=== PATIENT | female | born 2000 | race Caucasian/White ===

== ENCOUNTER 2024-06-27 16:30 | Inpatient (IN) | payer MEDICAID ==
[~2024-06-27] VITALS: Ht 162.6 cm; Wt 55.2 kg
[2024-06-27] MEDS ORDERED: magnesium hydroxide 30ml (MOM) UD suspension PO PRN (21:40)
[2024-06-27] MEDS ORDERED: acetaminophen 325mg tablet PO PRN (21:40)
[2024-06-28 07:30] VITALS: BP 131/87; PULSE 95; RESP 15; TEMP 97.7; O2SAT 100
[2024-06-28 07:44] LABS: CHOL/HDL RATIO 3.2 (0.00-4.99); CHOLESTEROL 167 MG/DL (0-200); HDL CHOLESTEROL 52 MG/DL (35-60); LDL CHOLESTEROL 99 MG/DL (50-100); TRIGLYCERIDES 48 MG/DL (20-135)
[2024-06-28 08:00] VITALS: RESP 15; O2SAT 100
[2024-06-28 08:19] LABS: HEMOGLOBIN A1C 5.2 % (4.5-6.2)
[2024-06-28] MEDS: hydrOXYzine 25 MG tablet PO PRN (08:59)
--- NOTE | 2024-06-28 14:47 | HISTORY AND PHYSICAL ---
History & Physical Providers to Chief complaint, I like to go home ~ History of Present Illness Reason for Admit\Complaint: As above History of Present Illness This is a 24 years old female, with a history of chronic psoriasis, not in exacerbation, according to the medical provider from mental unit, patient arrived at 2055 by with family. Pt is pleasant and cooperative. Showered and green scrubs used, has personal clothes in a suitcase. Skin is intact. Snacks given and admission completed. Low risk CSSR and has no home medications. Has poor memory about the recent change in mental status, admits being confused about recent events, lost track of time, difficulty sleeping, hyperverbal at home/ ER. States recent work stress with a new job, possibly that is what caused this. Only medical issues are history of psoriasis and dental. She was able to fall asleep after 2300. No nausea vomiting diarrhea constipation no additional complaint, or concern. Allergies: Coded Allergies: No Known Allergies (Unverified , 06/27/24) Active prescriptions Non Home Medications Non Past Medical History Past Medical History History of chronic psoriasis Past Surgical History Surgical History Comment Non Family History Family History: Family history was reviewed; no changes noted. Past Social History Social History Comment Deny illicit drug abuse tobacco alcohol use live with the family good social support Health Maintenance Health Maintenance Noncontributory ROS ROS Constitutional : no fever , no chills, or weakness. No diaphoresis. Allergic/Immunologic, no lymphadenopathy, no hives, no skin eruptions. Eyes, no recent visual changes, no eye pain, no photophobia. Ears, nose, mouth, throat, no sore throat, no nosebleed, no ear pain. Cardiovascular, no palpitations, skipped beats, chest pain, no peripheral edema, Respiratory, no dyspnea, orthopnea, cough, hemoptysis, chest wall pain. Gastrointestinal, no abdominal pain, nausea, vomiting, constipation or diarrhea. Endocrine, no polyuria, polydipsia, recent unintentional weight gain or loss. Hematologic/Lymphatic, no petechiae, no enlarged lymph nodes, no bone pain. Integumentary, no rash, no skin lesions, Musculoskeletal, no muscle aches, or pain, no muscle cramps, no recent change in gait Neurological, no dizziness, no headache, no syncope, no paresthesia. Psychiatric, no delusions, visual hallucinations, or hearing hallucinations. ROS - in rest is as in HPI. Exam Vitals: Vital Signs Date Time Temp Pulse Resp B/P (MAP) Pulse Ox O2 Delivery O2 Flow Rate FiO2 06/28/24 08:00 15 100 Room Air 06/28/24 07:30 97.7 95 131/87 (102) Vital signs, stable ,afebrile. Pulse Oximetry reflects adequate oxygenation. BMI is General: well developed, well nourished. Awake , alert, and oriented x4, resting comfortably in the bed, in no acute distress . Skin: Warm, dry, no pallor, no rash or petechiae. HEENT: Atraumatic, normocephalic, EOMI, anicteric sclera B; pink conjunctiva; PERRLA, normal oropharynx, moist oral and nasal mucosa. Tympanic membrane , nose , throat clear. Neck: Trachea midline. Supple, full range of motion, no JVD, bruit , hepatojugular reflex , lymphadenopathy or masses, or other lesions Cardiac: Regular rhythm, regular rate no murmurs, rubs, or gallops. Normal S1 and S2, no S3 noticed. PMI is normal. Respiratory: Equal breath sounds bilaterally, no tachypnea; lungs clear to auscultation bilaterally, no wheezing ,rub or rales, or crackles. Chest wall is symmetric and without deformity. No signs of trauma. Chest wall is nontender. No signs of respiratory distress. Resonance is normal upon percussion bilaterally. Gastrointestinal: Abdomen symmetric, non-distended, soft, non-tender, normal bowel sounds x4 quadrant, normoactive, no hepatosplenomegaly , no masses , no bruit, no flank pain bilaterally. No voluntary guarding, rebound, or rigidity. No tenderness to percussion. No pulsatile masses. Equal femoral pulses. No Garcia's sign or McBurney point tenderness. Back; no CVA tenderness bilaterally, no deformities. Neck and back are without deformity as well. No tenderness noted on palpation of the spinous processes. Spinous processes are midline. Cervical, thoracic, and lumbar paraspinal muscles are not tender and are without spasm. Musculoskeletal: Extremities, normal range of motion, non-tender, muscle strength 5/5 x 4. Negative Homans signs bilaterally on lower extremity. Distal pulses full symmetrical, no clubbing, cyanosis , edema. Neurological: Speech is clear, alert, and oriented x 4. No motor or sensory deficit, deep tendon reflexes normal, cerebellar intact. Cranial nerves II-XII intact. Psych: Alert and or appropriate, normal affect. Vascular: Good distal pulses, which are equal x4; capillary refill less than 2 seconds. Lymphatic, no lymphadenopathy. Advance Care Planning Advanced Care plannin - 30 Minutes Additional Plan Assessment/plan Acute psychosis Treatment per Psychiatric team. Chronic psoriasis, not in exacerbation. DVT gastropathy prophylaxis addressed Hospitalist team we will follow patient per protocol of the [facility] Sepsis Screening Reassessment Date: June 28, 2024 Date of Service: June 28, 2024 Billing Provider: NORMAN JONES MD Common Visit Codes: [id number] INP/OBS CARE (LOW) NORMAN JONES MD June 28, 2024 14:47
[2024-06-28 19:00] VITALS: RESP 17; O2SAT 100
[2024-06-28] MEDS: chlorproMAZINE 25mg tablet PO PRN (19:35)
[2024-06-28 19:53] VITALS: BP 140/91; PULSE 107; RESP 17; TEMP 97.4; O2SAT 100
[2024-06-28] MEDS: gabapentin 100mg capsule PO SCH (19:57)
[2024-06-28] MEDS: quetiapine 100mg tablet PO SCH (19:57)
--- NOTE | 2024-06-28 19:59 | HISTORY AND PHYSICAL ---
History of Present Illness History of Present Illness Patient presents as paranoid, saw staring at me, stating she does not want to be recorded or have her picture taken, answered all questions with " we shall see" per chart notes- patient arrived at 2055 by WC with family. She has poor memory about the recent change in mental status, admits being confused about recent events, lost track of time, difficulty sleeping, hyperverbal at home/ ER. States recent work stress with a new job, possibly that is what caused this. No home meds. CALLED PARENTS FOR COLLATERAL INFORMATION BUT WAS NOT ABLE TO GET IN TOUCH WITH THEM Allergies: Coded Allergies: No Known Allergies (Unverified , 06/27/24) Past Psychiatric History Psychiatric History Not able to obtain at this time Past Family History Patient History: Patient reports no known family medical history. Mental Status Exam OBSERVATION Appearnace: Neat Speech: Tangential Eye Contact: Intense Motor Activity: Slowed Affect: Flat MOOD Mood: Irritable COGNITION Orientation Impairment: Place Memory Impairment: Other Attention: Normal PERCEPTION Hallucinations: Other THOUGHTS Suicidality: None Homicidality: None Delusions: Paraniod, Other BEHAVIOR Behavior: Guarded, Paranoid INSIGHT Insight: Poor Judgment: Poor Assessment/Plan Problems/Diagnosis: (1) Psychosis Additional Plan Medication management: Seroquel 100 mg q hs abilify 10 mg daily gabapentin 100 mg tid hydroxyzine 50 mg q 6 prn anxiety Trazodone 50 mg q hs prn insomnia CODING VISIT-PSYCHIATRY Date of Service: June 28, 2024 Billing Provider: SENAIT ARDON DNP Psych Common Visit Codes: [id number] INP/OBS CARE (Mod) Problem Qualifiers (1) Psychosis: SENAIT ARDON DNP June 28, 2024 19:59
[2024-06-28 20:45] VITALS: BP_SYST 127; BP_SYST 130; BP_DIAS 84; BP_DIAS 86; PULSE 102; PULSE 84
[2024-06-28 20:46] VITALS: BP 107/64; PULSE 126
[2024-06-29 07:00] VITALS: BP 129/83; PULSE 98; RESP 16; TEMP 97.9; O2SAT 100
[2024-06-29 07:30] VITALS: RESP 16; O2SAT 100
[2024-06-29] MEDS: aripiprazole 10MG tablet PO SCH (08:14)
[2024-06-29 09:00] VITALS: BP_SYST 125; BP_SYST 126; BP_SYST 128; BP_DIAS 87; BP_DIAS 89; BP_DIAS 90; PULSE 110; PULSE 130; PULSE 141
--- NOTE | 2024-06-29 17:00 | PROGRESS NOTE ---
Progress Note Dictate Providers to CC ~ Antibiotic Ordered?: No Objective Vitals Vital Signs Date Time Temp Pulse Resp B/P (MAP) Pulse Ox O2 Delivery O2 Flow Rate FiO2 06/29/24 09:00 110 126/87 (100) 06/29/24 07:30 16 100 Room Air 06/29/24 07:00 97.9 Problem\\Assessment\\Plan Problems/Diagnosis: (1) Psychosis Psychiatrist's Progress Note Date of Service: June 29, 2024 Notes History of Present Illness Patient presents as paranoid, saw staring at me, stating she does not want to be recorded or have her picture taken, answered all questions with " we shall see" per chart notes- patient arrived at 2055 by WC with family. She has poor memory about the recent change in mental status, admits being confused about recent events, lost track of time, difficulty sleeping, hyperverbal at home/ ER. States recent work stress with a new job, possibly that is what caused this. No home meds. Assessment. Pt evaluated in the conference room, presented more clear, stated she slept well, feels her a weight have shifted. patient is showing some progr ess, will continue with same tx regimen. Will continue to monitor symptoms and titrate medication as needed, premature discharge will most likely cause decompensation Collateral: Per pt father, patient had no prior psych hx, there is also no family psych hx. 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, just broke up with boyfriend which might have been too much for the patient MSE Appearance: stated age Speech: Normal rate/tone Eye Contact: good Motor: congruent Mood: "better" Orientation Impairment: Person, place and situation Memory Impairment: none Attention: Normal Hallucinations: Other Suicidality: None Homicidality: None Insight: fair Judgment: fair Medication management: Seroquel 100 mg q hs abilify 10 mg daily gabapentin 100 mg tid hydroxyzine 50 mg q 6 prn anxiety Trazodone 50 mg q hs prn insomnia CODING VISIT-PSYCHIATRY Date of Service: June 29, 2024 Billing Provider: SENAIT ARDON DNP Psych Common Visit Codes: [id number] INP/OBS CARE(Mod) Problem Qualifiers (1) Psychosis: SENAIT ARDON DNP June 29, 2024 17:00
[2024-06-29 19:00] VITALS: RESP 16
[2024-06-29 20:00] VITALS: BP 144/89; PULSE 117; RESP 16; TEMP 98.1; O2SAT 99
[2024-06-30 07:00] VITALS: RESP 16; O2SAT 99
[2024-06-30 08:00] VITALS: BP 112/70; PULSE 122; RESP 16; TEMP 98.5; O2SAT 99
--- NOTE | 2024-06-30 11:16 | PROGRESS NOTE ---
Daily Progress Note Providers to CC No new complaint today, resting comfortably in the bed ~ Central Line/PICC still needed: No Gee-Non Protocol Gee Indications Met/Not Met: F/C Indications Not Met Antibiotic Timeout Antibiotic Ordered?: No MRSA Education MRSA Education Provided to pt: No Subjective As above Objective Vital Signs Date Time Temp Pulse Resp B/P (MAP) Pulse Ox O2 Delivery O2 Flow Rate FiO2 06/30/24 08:00 98.5 122 16 112/70 (84) 99 Room Air Vital signs, stable ,afebrile. Pulse Oximetry reflects adequate oxygenation. General: well developed, well nourished. Awake , alert, and oriented x4, resting comfortably in the bed, in no acute distress . Skin: Warm, dry, no pallor, no rash or petechiae. HEENT: Atraumatic, normocephalic, EOMI, anicteric sclera B; pink conjunctiva; PERRLA, normal oropharynx, moist oral and nasal mucosa. Tympanic membrane , nose , throat clear. Neck: Trachea midline. Supple, full range of motion, no JVD, bruit , hepatojugular reflex , lymphadenopathy or masses, or other lesions Cardiac: Regular rhythm, regular rate no murmurs, rubs, or gallops. Normal S1 and S2, no S3 noticed. PMI is normal. Respiratory: Equal breath sounds bilaterally, no tachypnea; lungs clear to auscultation bilaterally, no wheezing ,rub or rales, or crackles. Chest wall is symmetric and without deformity. No signs of trauma. Chest wall is nontender. No signs of respiratory distress. Resonance is normal upon percussion bilaterally. Gastrointestinal: Abdomen symmetric, non-distended, soft, non-tender, normal bowel sounds x4 quadrant, normoactive, no hepatosplenomegaly , no masses , no bruit, no flank pain bilaterally. No voluntary guarding, rebound, or rigidity. No tenderness to percussion. No pulsatile masses. Equal femoral pulses. No Garcia's sign or McBurney point tenderness. Back; no CVA tenderness bilaterally, no deformities. Neck and back are without deformity as well. No tenderness noted on palpation of the spinous processes. Spinous processes are midline. Cervical, thoracic, and lumbar paraspinal muscles are not tender and are without spasm. : normal external genitalia, without lesions, swelling, masses or tenderness. Musculoskeletal: Extremities, normal range of motion, non-tender, muscle strength 5/5 x 4. Negative Homans signs bilaterally on lower extremity. Distal pulses full symmetrical, no clubbing, cyanosis , edema. Neurological: Speech is clear, alert, and oriented x 4. No motor or sensory deficit, deep tendon reflexes normal, cerebellar intact. Cranial nerves II-XII intact. Psych: Alert and or appropriate, normal affect. Vascular: Good distal pulses, which are equal x4; capillary refill less than 2 seconds. Lymphatic, no lymphadenopathy. Problem\Assessment\Plan Assessment/plan Acute psychosis Treatment per Psychiatric team. Chronic psoriasis, not in exacerbation. Dehydration, IV fluids on board DVT gastropathy prophylaxis addressed Hospitalist team we will follow patient per protocol of the hospital Sepsis Screening Reassessment Date: June 30, 2024 Date of Service: June 30, 2024 Billing Provider: NORMAN JONES MD Common Visit Codes: [id number] INP/OBS CARE(LOW) NORMAN JONES MD June 30, 2024 11:16
--- NOTE | 2024-06-30 18:36 | RADIOLOGY REPORT ---
Clinical History tachyarrytmia Comparison None Technique: single view chest Without Contrast JULIET HERRING, [id number] FINDINGS: Trachea is midline, heart size normal, cardiomediastinal silhouette unremarkable. There is no pneumonia or pulmonary vascular congestion, no pneumothorax, no evidence of pleural or pe ricardial effusion. Osseous structures are unremarkable on this single image. IMPRESSION: 1. No evidence of acute cardiopulmonary disease. This report was electronically signed by Terrell Barksdale MD on 06/30/2024 6:32:36 PM.
[2024-06-30 19:00] VITALS: RESP 18; O2SAT 98
[2024-06-30 19:37] LABS: D-DIMER 0.98 MG/L FEU (0-0.50)
[2024-06-30 19:38] LABS: BASOPHILS # (AUTO) 0.1 X10'3 (0-0.2); BASOPHILS % (AUTO) 1.1 % (0-1); EOSINOPHILS # (AUTO) 0.1 X10'3 (0-0.9); EOSINOPHILS % (AUTO) 1.7 % (0-6); HEMATOCRIT 38.1 % (35.0-45.0); HEMOGLOBIN 12.7 g/dl (12.0-16.0); LYMPHOCYTES # (AUTO) 1.9 X10'3 (1.1-4.8); LYMPHOCYTES % (AUTO) 25.4 % (21-51); MEAN CORPUSCULAR HEMOGLOBIN 24.5 PG (27.0-31.0); MEAN CORPUSCULAR HGB CONC 33.3 g/dL (33.0-36.5); MEAN CORPUSCULAR VOLUME 73.5 FL (78-98); MONOCYTES # (AUTO) 0.6 X10'3 (0-0.9); MONOCYTES % (AUTO) 7.8 % (2-12); NEUTROPHILS # (AUTO) 4.8 X10'3 (1.8-7.7); PLATELET COUNT 540 X10'3 (140-440); RED BLOOD COUNT 5.18 X10'6 (4.20-5.60); RED CELL DISTRIBUTION WIDTH 19.2 % (11.5-14.5); WHITE BLOOD COUNT 7.5 X10'3 (4.5-11.0)
[2024-06-30 19:41] LABS: ALANINE AMINOTRANSFERASE 25 U/L (12-78); ALBUMIN 4.3 G/DL (3.4-5.0); ALKALINE PHOSPHATASE 105 IU/L (46-116); ANION GAP 12 (8-16); ASPARTATE AMINO TRANSFERASE 17 U/L (10-37); BILIRUBIN,TOTAL 0.2 MG/DL (0.1-1.0); BLOOD UREA NITROGEN 14 MG/DL (7-18); BUN/CREATININE RATIO 17.1 (10.0-20.0); CALCIUM 9.4 MG/DL (8.5-10.1); CHLORIDE 100 MMOL/L (99-107); CREATINE KINASE 132 U/L (26-192); CREATININE 0.82 MG/DL (0.40-0.90); GLUCOSE 88 MG/DL (70-104); MAGNESIUM 2.1 MG/DL (1.5-2.4); POTASSIUM 4.3 MMOL/L (3.5-5.1); SODIUM 138 MMOL/L (135-145); TOTAL PROTEIN 8.5 G/DL (6.4-8.2); eCRCL 90 ML/MIN; eGFR 84 ML/MIN
[2024-06-30 20:00] VITALS: BP 109/77; PULSE 96; RESP 18; TEMP 98.4; O2SAT 98
[2024-06-30 20:03] LABS: ANISOCYTOSIS 2+; MICROCYTOSIS 1+
[2024-06-30 20:04] LABS: PLATELET ESTIMATE INCREASED
[2024-06-30 20:20] LABS: BILIRUBIN,URINE NEGATIVE (Neg); CLARITY,URINE SLIGHTLY CLOUDY (Clear); COLOR,URINE YELLOW (Yellow); GLUCOSE, URINE NEGATIVE (Neg); KETONES,URINE NEGATIVE (Neg); LEUKOCYTE ESTERASE ,URINE SMALL (Neg); NITRITES, URINE POSITIVE (Neg); OCCULT BLOOD,URINE LARGE (Neg); PH,URINE 5.5 (4.8-8.0); PROTEIN,URINE NEGATIVE (Neg); UROBILINOGEN,URINE 0.2 E.U/dL (0.2-1.0)
[2024-06-30 20:24] LABS: UA COLLECTION TYPE NON-SPECIFIED
[2024-06-30 20:28] LABS: BACTERIA,URINE 3+ /HPF (Neg); RBC,URINE TNTC /HPF (0-2); SQUAMOUS EPITHELIAL CELL,UR FEW /LPF (FEW)
[2024-06-30 20:40] LABS: URINE AMPHETAMINE SCREEN NEGATIVE (Neg); URINE BARBITUATE SCREEN NEGATIVE (Neg); URINE BENZODIAZEPINES SCREEN NEGATIVE (Neg); URINE CANNABINOID SCREEN NEGATIVE (Neg); URINE COCAINE SCREEN NEGATIVE (Neg); URINE METHADONE SCREEN NEGATIVE (Neg); URINE OPIATE SCREEN NEGATIVE (Neg); URINE PHENCYCLIDINE SCREEN NEGATIVE (Neg)
--- NOTE | 2024-06-30 20:46 | PROGRESS NOTE ---
Progress Note Dictate Providers to CC ~ Antibiotic Ordered?: No Objective Vitals Vital Signs Date Time Temp Pulse Resp B/P (MAP) Pulse Ox O2 Delivery O2 Flow Rate FiO2 06/30/24 08:00 98.5 122 16 112/70 (84) 99 Room Air Lab Results: 06/30/24 1848 06/30/24 1848 Coagulation Studies Laboratory Tests Test 06/30/24 18:48 D-Dimer 0.98 MG/L FEU (0-0.50) H D-Dimer Comment Problem\\Assessment\\Plan Problems/Diagnosis: (1) Psychosis Psychiatrist's Progress Note Date of Service: June 30, 2024 Notes HPI Patient presents as paranoid, saw staring at me, stating she does not want to be recorded or have her picture taken, answered all questions with " we shall see" per chart notes- patient arrived at 2055 by WC with family. She has poor memory about the recent change in mental status, admits being confused about recent events, lost track of time, difficulty sleeping, hyper verbal at home/ ER. States recent work stress with a new job, possibly that is what caused this. No home meds. Assessment Patient assessed in the conference room, report good efficacy with treatment, sleep is good, mood have improved, she denies SI/HI/AVH, states she feels bored because there is really nothing to do in the hospital but understands that it is better for her. No behavioral or safety concerns reported by staff, Will continue to monitor symptoms and titrate meds as needed with plans to discharge patient in a few days if she continuos to show good progress, MSE Speech: Normal rate/tone Eye Contact: good Motor: congruent Mood: "ok" Orientation Impairment: Person, place and situation Memory Impairment: none Attention: Normal Hallucinations: Other Suicidality: None Homicidality: None Insight: good Judgment: good Medication management: Seroquel 100 mg q hs abilify 10 mg daily gabapentin 100 mg tid hydroxyzine 50 mg q 6 prn anxiety Trazodone 50 mg q hs prn insomnia CODING VISIT-PSYCHIATRY Date of Service: June 30, 2024 Billing Provider: SENAIT ARDON DNP Psych Common Visit Codes: [id number] INP/OBS CARE(Mod) Problem Qualifiers (1) Psychosis: SENAIT ARDON DNP June 30, 2024 20:46
[2024-07-01] MEDS: ringers solution, lacted 1,000 ML IV ONE (00:48)
[2024-07-01 07:00] VITALS: RESP 12; O2SAT 92
[2024-07-01 08:00] VITALS: BP 108/71; PULSE 75; RESP 16; TEMP 97; O2SAT 97
[2024-07-01] MEDS: levoFLOXACIN 750MG TABLET PO SCH (11:50)
--- NOTE | 2024-07-01 13:25 | PROGRESS NOTE ---
Progress Note Dictate Providers to CC ~ Central Line/PICC still needed: N\A Antibiotic Ordered?: Yes If Yes, Indications: UTI If Yes, Anticipated Duration: 10d Objective Vitals Vital Signs Date Time Temp Pulse Resp B/P (MAP) Pulse Ox O2 Delivery O2 Flow Rate FiO2 06/30/24 20:00 98.4 96 18 109/77 (88) 98 Room Air Lab Results: 06/30/24 1848 06/30/24 1848 Coagulation Studies Laboratory Tests Test 06/30/24 18:48 D-Dimer 0.98 MG/L FEU (0-0.50) H D-Dimer Comment Problem\Assessment\Plan Problems/Diagnosis: (1) Psychosis Psychiatrist's Progress Note Date of Service: July 01, 2024 Notes Johnna Dinh is an female with no known mental health history who presented to [facility] ED with complaints of anxiety and unusual behaviors. She was recently evaluated by a hospital in [place] last week. They did lab work. She talked with a psychiatrist and was d/c with Atarax. She has not seen improvement from medication. Family states she had a bad break up 2 months ago. Sister states that the patient is not making sense and is often talking to herself. CHART REVIEW: Calvin, her father was present at that interview with [facility]. He reports she is not alert and oriented. Johnna herself is a poor historian and often unable to provide any coherent information. Dad states they recently moved from [facility] due to persecution and were seeking asylum. Dad, Step Mom, and sister moved to [place]. Last April she seemed like herself when she visited her father. 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 She recently got a license and stressed about driving in [place]. At that point father stated he talked to over the phone. She was very talkative and was not sleeping. She had been talking with her boyfriend who then contacted her family as he was concerned about her behavior. She hadn't been sleeping, the hotel room was a mess, and she was screaming. She was taken to the ER. Stayed there 2d and given atarax, diagnosed with anxiety. Johnna and Johnna's sister flew to [place] to be with their father so he could help. She started to not sleep again. Working on [employer] content. She was talking more about congregational. The family are Baptism but not overly so. Her behavior became erratic where she was standing on the balcony disrobed, was very entergetic and mumbled to herself. She was also becoming paranoid and thinking the neighbors were just standing in front of the door. She was not eating much and not sleeping. Patient was placed on a 5150 for GD. Patient is an female with long black nappy hair pulled up into a hair tie. She is wearing street clothes. Struggling today a little bit. 'it's been a long day.' Been hiding the corners. 'hard to digest how much of an impact the world has on you.' 'I'm not judging anyone.' Skittish. Guarded. 'There should be white noise up in here, we can all just have a nap or a sip of water.' Had to do deep breathing. Asking questions but not able to answer correctly, Disoriented, 'Yes' Anxious. 'genuinely just the two of us here,' On an antibiotic 'also complicated.' Looking around the room. 'we are the world it's a song, I think,' Sleep last night and tried to nap and then hard time thinking. Took a nap. 'woke up pretty violently.' Distracted by things in the room. Says 'it's night and day.' Mental Status Patient's appearance is appropriate. Behavior is described as bizarre and paranoid Psychomotor behaviors are slowed Speech is slow to respond. Often not responding appropriately Patient's affect : Blunted Mood : 'It's been a long day.' Sensorium- clouded and confused, disorented consciousness. Patient's intellect is average. Attitude is cooperative. Attention is quite distracted Reasoning is poor Impulse control is poor Judgment is poor Insight is Poor Thought processes are circumstantial, tangential, Paranoid with quaker delusions Thought content : Internal preoccupation, Denies auditory visual or tactile hallucinations, but heard and seen responding to internal stimuli. Having paranoid ideations The patient does not express suicidal ideation. The patient does not express homicidal ideation. Results Of any Diagn. Testing On Admission Labs CBC- WNL CMP- WNL TSH- 1.45 UTOX- NEG URINE-- small leuks no nitrites. No C&S indicated HCG- NEG Treatment Patient is definitely having a break from reality. Unsure if this is a first psychotic break or other. She is responding to the abilify very minimally. Will try to increase and see if she will clear up more. Sounds like she could be bipolar with psychotic symptoms or schizophrenia with mood changes. Gave patient a one time dose of Zyprexa and Ativan which were very effective. Seroquel 100 mg q hs Abilify 15 mg daily Gabapentin 100 mg tid Hydroxyzine 50 mg q 6 prn anxiety Trazodone 50 mg q hs prn insomnia Monitoring by Staff, Milieu, Group, and Individual counseling as needed -- According to the [place] Suicide Assessment the above named patient is on Q 15 MINUTE CHECKS. DTS-- The patient does not have a good safety plan for discharge at this time. We are still titrating medications to an effective dose while maintaining a therapeutic environment to prevent decompensation and readmission. GD-- The patient is unable to formulate a viable plan for food, clothing and half-way. We are still titrating medications to an effective dose while maintaining a therapeutic environment to prevent decompensation and readmission. REVIEW OF Clinical notes [X ] RN notes [X] PCT documentation [X] SW notes [X] Labs [ X] Medications [X] Care trends/care activity [X] Vitals [X] DISCUSSION WITH night monitor [X] DISCHARGE UNSURE AT THIS TIME. DISCHARGE HOME ONCE STABLE. CODING VISIT-PSYCHIATRY Date of Service: July 01, 2024 Billing Provider: SOHAN CLAUDIO Psych Common Visit Codes: [id number] INP/OBS CARE(High) Problem Qualifiers (1) Psychosis: SOHAN CLAUDIO July 01, 2024 13:25
[2024-07-01] MEDS: LORazepam 1 MG tablet PO ONE (17:13)
[2024-07-01] MEDS: OLANZapine 5mg rapidly disint. tablet PO ONE (17:13)
[2024-07-01 19:00] VITALS: RESP 20; O2SAT 100
[2024-07-01 20:00] VITALS: BP 92/60; PULSE 80; RESP 20; TEMP 97.9; O2SAT 100
[2024-07-02 07:00] VITALS: RESP 16; O2SAT 100
[2024-07-02 08:00] VITALS: BP 124/85; PULSE 85; RESP 16; TEMP 97.7; O2SAT 100
--- NOTE | 2024-07-02 10:42 | PROGRESS NOTE ---
Progress Note Dictate Providers to CC ~ Central Line/PICC still needed: N\A Antibiotic Ordered?: No Objective Vitals Vital Signs Date Time Temp Pulse Resp B/P (MAP) Pulse Ox O2 Delivery O2 Flow Rate FiO2 07/02/24 08:00 97.7 85 16 124/85 (98) 100 Room Air Lab Results: 06/30/24 1848 06/30/24 1848 Coagulation Studies Laboratory Tests Test 06/30/24 18:48 D-Dimer 0.98 MG/L FEU (0-0.50) H D-Dimer Comment Problem\Assessment\Plan Problems/Diagnosis: (1) Psychosis Psychiatrist's Progress Note Date of Service: July 02, 2024 Notes Woke up early and usually go to buddhism with family. Sometimes just watch at home. Feels like confusion based off multiple choices. 'feeling good'. Someone watching her from outside the door. Remembered where she was. In a hospital. For treatment for something. Depression comes and goes like seasons. Talking a little bit tangentially. Realized a lot of things that the world is a globe and doesn't roll on the ground. Things that were made known in terms of contracts and treaties. Not sure at this point what she has signed. 'consent is an important in this universe.' Talks a little bizarre. Feels she was given consent for meds. More trusting than she was when she first came here. Anxiety comes.. thinking of future. 'Maybe I was studied, I don't know who did.' Hear people talking outside but I'm in here with you so it doesn't bother me.' Slept last night. Feeling less scared. She picks up the Bible... because of this. She still is wandering a bit. Still looking a little lost. Still responding to Internal Stimuli but seems far less. She does admit to some VH at times. Johnna Dinh is an female with no known mental health history who presented to [facility] ED with complaints of anxiety and unusual behaviors. She was recently evaluated by a hospital in [place] last week. They did lab work. She talked with a psychiatrist and was d/c with Atarax. She has not seen improvement from medication. Family states she had a bad break up 2 months ago. Sister states that the patient is not making sense and is often talking to herself. CHART REVIEW: Calvin, her father was present at that interview with [facility]. He reports she is not alert and oriented. Johnna herself is a poor historian and often unable to provide any coherent information. Dad states they recently moved from [facility] due to persecution and were seeking asylum. Dad, Step Mom, and sister moved to [place]. Last April she seemed like herself when she visited her father. 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 She recently got a license and stressed about driving in [place]. At that point father stated he talked to over the phone. She was very talkative and was not sleeping. She had been talking with her boyfriend who then contacted her family as he was concerned about her behavior. She hadn't been sleeping, the hotel room was a mess, and she was screaming. She was taken to the ER. Stayed there 2d and given atarax, diagnosed with anxiety. Johnna and Johnna's sister flew to [place] to be with their father so he could help. She started to not sleep again. Working on [employer] content. She was talking more about mandaen. The family are Mosque but not overly so. Her behavior became erratic where she was standing on the balcony disrobed, was very entergetic and mumbled to herself. She was also becoming paranoid and thinking the neighbors were just standing in front of the door. She was not eating much and not sleeping. Patient was placed on a 5150 for GD. Patient is an female with long black nappy hair pulled up into a hair tie. She is wearing street clothes. Struggling today a little bit. 'it's been a long day.' Been hiding the corners. 'hard to digest how much of an impact the world has on you.' 'I'm not judging anyone.' Skittish. Guarded. 'There should be white noise up in here, we can all just have a nap or a sip of water.' Had to do deep breathing. Asking questions but not able to answer correctly, Disoriented, 'Yes' Anxious. 'genuinely just the two of us here,' On an antibiotic 'also complicated.' Looking around the room. 'we are the world it's a song, I think,' Sleep last night and tried to nap and then hard time thinking. Took a nap. 'woke up pretty violently.' Distracted by things in the room. Says 'it's night and day.' Mental Status Mental Status Patient's appearance is appropriate. Behavior is described as bizarre and paranoid Psychomotor behaviors are slowed Speech is slow to respond. Often not responding appropriately Patient's affect : Blunted Mood : 'It's been a long day.' Sensorium- clouded and confused, a little less disorented consciousness. Patient's intellect is average. Attitude is cooperative. Attention is quite distracted Reasoning is poor Impulse control is poor Judgment is poor Insight is Poor Thought processes are circumstantial, tangential, Paranoid with jehovah's witness delusions Thought content : Internal preoccupation, Denies auditory visual or tactile hallucinations, but heard and seen responding to internal stimuli. Having paranoid ideations The patient does not express suicidal ideation. The patient does not express homicidal ideation. Results Of any Diagn. Testing On Admission Labs CBC- WNL CMP- WNL TSH- 1.45 UTOX- NEG URINE-- small leuks no nitrites. No C&S indicated HCG- NEG Treatment Patient's abilify was just increased. She was also given a one time dose of zyprexa and ativan which she feels helped her.... She is showing some improvement... We could increase Abilify again, perhaps, but If not helpful in completely clearing patient should think about switching to something else. Like Zyprexa or Risperdal. Hopefully we could get her to agree to an FISCHER prior to discharge. Seroquel 100 mg q hs Abilify 15mg daily Gabapentin 100 mg tid Hydroxyzine 50 mg q 6 prn anxiety Trazodone 50 mg q hs prn insomnia Monitoring by Staff, Milieu, Group, and Individual counseling as needed -- According to the [place] Suicide Assessment the above named patient is on Q 15 MINUTE CHECKS. DTS/GD--VOL-- The patient does not have a good safety plan for discharge at this time. We are still titrating medications to an effective dose while maintaining a therapeutic environment to prevent decompensation and readmission. The patient is unable to formulate a viable plan for food, clothing and mcc. We are still titrating medications to an effective dose while maintaining a therapeutic environment to prevent decompensation and readmission. REVIEW OF Clinical notes [X ] RN notes [X] PCT documentation [X] SW notes [X] Labs [ X] Medications [X] Care trends/care activity [X] Vitals [X] DISCUSSION WITH plant nursery worker [X] DISCHARGE UNSURE AT THIS TIME. DISCHARGE HOME ONCE STABLE. CODING VISIT-PSYCHIATRY Date of Service: July 02, 2024 Billing Provider: SOHAN CLAUDIO Psych Common Visit Codes: [id number] INP/OBS CARE(Mod) Problem Qualifiers (1) Psychosis: SOHAN CLAUDIO July 02, 2024 10:42
[2024-07-02] MEDS: lactose-reduced food (Ensure Enlive) - 237ml bottle PO SCH (13:26)
[2024-07-02] MEDS: mag hydrox/Alum hydrox/simeth 30ml oral suspension PO PRN (14:33)
--- NOTE | 2024-07-02 16:19 | PROGRESS NOTE- Residence ---
Progress Note - Resident Providers to CC Resident Creating Document: GABRIEL ARNETT CC: TERI CARABALLO MD ~ Antibiotic Timeout Antibiotic Ordered?: No Subjective Patient was seen in [facility] unit today. Patient is calm and cooperative but but her speech lacks coherence and she is unable to provide straight answers. When asked if she has any medical complaints she responded "I have two scars on my hand". Objective Vital Signs Date Time Temp Pulse Resp B/P (MAP) Pulse Ox O2 Delivery O2 Flow Rate FiO2 07/02/24 08:00 97.7 85 16 124/85 (98) 100 Room Air Result Diagram: 06/30/248 06/30/241847 General:Cooperative but incoherent speech HEENT: No pallor present, no icterus, moist mucous membranes Neck: No masses and tenderness Resp: Unlabored. Lungs clear to auscultation bilaterally. Heart: Regular Rate and rhythm, normal S1 and S2 without murmur, rub or gallop Abdomen: Soft and non tender no organomegaly, no guarding and rigidity, bowel sounds present Neuro: No weakness in the upper and lower limb muscles, power of the muscles 5/5 bilateral upper and lower muscles, knee reflex present bilaterally. Cranial nerves intact Extremities: No cyanosis,clubbing or edema Skin: Warm and Dry. No lesions Coagulation Studies Laboratory Tests Test 06/30/24 18:48 D-Dimer 0.98 MG/L FEU (0-0.50) H D-Dimer Comment Plan Plan Psychosis Management per psychiatry UTI On Levofloxacin, day 3/5 No medical complaints at this time. Recent labs reviewed. Hospitalist team will continue to follow the patient Gabriel Gonzalez MD Internal Medicine Resident PGY-1 Date of Service: July 02, 2024 Billing Provider: TERI CARABALLO MD, LEONARDO LUIS July 02, 2024 16:19
[2024-07-02 19:00] VITALS: RESP 18; O2SAT 99
[2024-07-02 20:00] VITALS: BP 134/95; PULSE 65; RESP 18; TEMP 98.3; O2SAT 99
[2024-07-02] MEDS: LORazepam 1 MG tablet PO ONE (22:20)
[2024-07-02] MEDS: OLANZapine 2.5MG tablet PO ONE (22:20)
[2024-07-03 07:00] VITALS: RESP 18; O2SAT 100
[2024-07-03 08:00] VITALS: BP 129/74; PULSE 76; RESP 18; TEMP 98.3; O2SAT 100
--- NOTE | 2024-07-03 10:51 | PROGRESS NOTE ---
Progress Note Dictate Providers to CC ~ Antibiotic Ordered?: No Objective Vitals Vital Signs Date Time Temp Pulse Resp B/P (MAP) Pulse Ox O2 Delivery O2 Flow Rate FiO2 07/03/24 08:00 98.3 76 18 129/74 (92) 100 Room Air Lab Results: 06/30/24 1848 06/30/24 1848 Coagulation Studies Laboratory Tests Test 06/30/24 18:48 D-Dimer 0.98 MG/L FEU (0-0.50) H D-Dimer Comment Problem\\Assessment\\Plan Problems/Diagnosis: (1) Psychosis Psychiatrist's Progress Note Date of Service: July 03, 2024 Notes Johnna Dinh is an female with no known mental health history who presented to [facility] ED with complaints of anxiety and unusual behaviors. She was recently evaluated by a hospital in [place] last week. They did lab work. She talked with a psychiatrist and was d/c with Atarax. She has not seen improvement from medication. Family states she had a bad break up 2 months ago. Sister states that the patient is not making sense and is often talking to herself. CHART REVIEW: Calvin, her father was present at that interview with [facility]. He reports she is not alert and oriented. Johnna herself is a poor historian and often unable to provide any coherent information. Dad states they recently moved from [facility] due to persecution and were seeking asylum. Dad, Step Mom, and sister moved to [place]. Last April she seemed like herself when she visited her father. 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 She recently got a license and stressed about driving in [place]. At that point father stated he talked to over the phone. She was very talkative and was not sleeping. She had been talking with her boyfriend who then contacted her family as he was concerned about her behavior. She hadn't been sleeping, the hotel room was a mess, and she was screaming. She was taken to the ER. Stayed there 2d and given atarax, diagnosed with anxiety. Johnna and Johnna's sister flew to [place] to be with their father so he could help. She started to not sleep again. Working on [email or web address] content. She was talking more about christian. The family are Mosque but not overly so. Her behavior became erratic where she was standing on the balcony disrobed, was very entergetic and mumbled to herself. She was also becoming paranoid and thinking the neighbors were just standing in front of the door. She was not eating much and not sleeping. Patient was placed on a 5150 for GD. Assessment: Patient evaluated in the conference room, acting bizzare,paranoid, responding to internal stimuli, looking under the table, talking to self, speech is nonsensical, doing deep breathing during the assessment. not answering questions correctly" It's complicated" Patient seemed to have regressed, still adjusting medications, will continue inpatient admission. Mental Status Mental Status Patient's appearance is appropriate. Behavior is described as bizarre and paranoid Psychomotor behaviors are slowed Speech is slow to respond. Often not responding appropriately Patient's affect : Blunted Mood : 'It's been a long day.' Sensorium- clouded and confused, a little less disorented consciousness. Patient's intellect is average. Attitude is cooperative. Attention is quite distracted Reasoning is poor Impulse control is poor Judgment is poor Insight is Poor Thought processes are circumstantial, tangential, Paranoid with presybeterian delusions Thought content : Internal preoccupation, Denies auditory visual or tactile hallucinations, but heard and seen responding to internal stimuli. Having paranoid ideations The patient does not express suicidal ideation. The patient does not express homicidal ideation. Results Of any Diagn. Testing On Admission Labs CBC- WNL CMP- WNL TSH- 1.45 UTOX- NEG URINE-- small leuks no nitrites. No C&S indicated HCG- NEG Treatment Seroquel 100 mg q hs Suspend Abilify 15mg daily D/c Gabapentin 100 mg tid Hydroxyzine 50 mg q 6 prn anxiety Trazodone 50 mg q hs prn insomnia Monitoring by Staff, Milieu, Group, and Individual counseling as needed -- According to the [place] Suicide Assessment the above named patient is on Q 15 MINUTE CHECKS. DTS/GD--VOL-- The patient does not have a good safety plan for discharge at this time. We are still titrating medications to an effective dose while maintaining a therapeutic environment to prevent decompensation and readmission. The patient is unable to formulate a viable plan for food, clothing and longterm. We are still titrating medications to an effective dose while maintaining a therapeutic environment to prevent decompensation and readmission. CODING VISIT-PSYCHIATRY Date of Service: July 03, 2024 Billing Provider: SENAIT ARDON DNP Psych Common Visit Codes: [id number] INP/OBS CARE(Mod) Problem Qualifiers (1) Psychosis: SENAIT ARDON DNP July 03, 2024 10:51
[2024-07-03] MEDS: acetaminophen 325mg tablet PO PRN (17:21)
[2024-07-03 19:00] VITALS: RESP 18; O2SAT 99
[2024-07-03 20:00] VITALS: BP 127/86; PULSE 89; RESP 18; TEMP 98.2; O2SAT 99
[2024-07-04 07:30] VITALS: BP 149/84; PULSE 82; RESP 16; TEMP 97.4; O2SAT 99
[2024-07-04 08:00] VITALS: RESP 16; O2SAT 99
[2024-07-04 18:39] VITALS: RESP 18; O2SAT 99
--- NOTE | 2024-07-04 18:54 | PROGRESS NOTE ---
Progress Note Dictate Providers to CC ~ Antibiotic Ordered?: No Objective Vitals Vital Signs Date Time Temp Pulse Resp B/P (MAP) Pulse Ox O2 Delivery O2 Flow Rate FiO2 07/04/24 18:39 18 99 Room Air 07/04/24 07:30 97.4 82 149/84 (105) Lab Results: 06/30/24 1848 06/30/24 1848 Coagulation Studies Laboratory Tests Test 06/30/24 18:48 D-Dimer 0.98 MG/L FEU (0-0.50) H D-Dimer Comment Problem\\Assessment\\Plan Problems/Diagnosis: (1) Psychosis Psychiatrist's Progress Note Date of Service: July 04, 2024 Notes Johnna Dinh is an female with no known mental health history who presented to [facility] ED with complaints of anxiety and unusual behaviors. She was recently evaluated by a hospital in [place] last week. They did lab work. She talked with a psychiatrist and was d/c with Atarax. She has not seen improvement from medication. Family states she had a bad break up 2 months ago. Sister states that the patient is not making sense and is often talking to herself. CHART REVIEW: Calvin, her father was present at that interview with [facility]. He reports she is not alert and oriented. Johnna herself is a poor historian and often unable to provide any coherent information. Dad states they recently moved from [facility] due to persecution and were seeking asylum. Dad, Step Mom, and sister moved to [place]. Last April she seemed like herself when she visited her father. 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 She recently got a license and stressed about driving in [place]. At that point father stated he talked to over the phone. She was very talkative and was not sleeping. She had been talking with her boyfriend who then contacted her family as he was concerned about her behavior. She hadn't been sleeping, the hotel room was a mess, and she was screaming. She was taken to the ER. Stayed there 2d and given atarax, diagnosed with anxiety. Johnna and Johnna's sister flew to [place] to be with their father so he could help. She started to not sleep again. 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 She was talking more about yazidism. The family are Religion but not overly so. Her behavior became erratic where she was standing on the balcony disrobed, was very entergetic and mumbled to herself. She was also becoming paranoid and thinking the neighbors were just standing in front of the door. She was not eating much and not sleeping. Patient was placed on a 5150 for GD. Assessment: Patient evaluated in the conference room, appears confused, answers all questions with " it is complicated", pt still exhibits acute psychiatric symptoms, adjusting tx, initiating zyprexa 5 mg with slow taper up. No safety concerns reported by staff. Mental Status Mental Status Patient's appearance is appropriate. Behavior is described as bizarre and paranoid Psychomotor behaviors are slowed Speech is slow to respond. Often not responding appropriately Patient's affect : Blunted Mood : 'It's been a long day.' Sensorium- clouded and confused, a little less disorented consciousness. Patient's intellect is average. Attitude is cooperative. Attention is quite distracted Reasoning is poor Impulse control is poor Judgment is poor Insight is Poor Thought processes are circumstantial, tangential, Paranoid with orthodoxy delusions Thought content : Internal preoccupation, Denies auditory visual or tactile hallucinations, but heard and seen responding to internal stimuli. Having paranoid ideations The patient does not express suicidal ideation. The patient does not express homicidal ideation. Results Of any Diagn. Testing On Admission Labs CBC- WNL CMP- WNL TSH- 1.45 UTOX- NEG URINE-- small leuks no nitrites. No C&S indicated HCG- NEG Treatment Seroquel 100 mg q hs Suspend Abilify 15mg daily D/c Gabapentin 100 mg tid Hydroxyzine 50 mg q 6 prn anxiety Trazodone 50 mg q hs prn insomnia Monitoring by Staff, Milieu, Group, and Individual counseling as needed -- According to the [place] Suicide Assessment the above named patient is on Q 15 MINUTE CHECKS. DTS/GD--VOL-- The patient does not have a good safety plan for discharge at this time. We are still titrating medications to an effective dose while maintaining a therapeutic environment to prevent decompensation and readmission. The patient is unable to formulate a viable plan for food, clothing and residential. We are still titrating medications to an effective dose while maintaining a therapeutic environment to prevent decompensation and readmission. CODING VISIT-PSYCHIATRY Date of Service: July 04, 2024 Billing Provider: SENAIT ARDON DNP Psych Common Visit Codes: [id number] INP/OBS CARE(Mod) Problem Qualifiers (1) Psychosis: SENAIT ARDON DNP July 04, 2024 18:54
[2024-07-04 20:01] VITALS: BP 123/88; PULSE 102; RESP 18; TEMP 98.5; O2SAT 100
--- NOTE | 2024-07-04 20:24 | PROGRESS NOTE ---
Daily Progress Note Providers to CC ~ Antibiotic Timeout Antibiotic Ordered?: No Subjective This is the hospitalist progress note on patients hospitalized at [facility]. The patient informs me that she had fallen laterally due to dizziness and has left hip and knee pain. And on exam the patient has a clicking sensation with extension and flexion of her left knee however the left hip exam was unremarkable- the patient's roommate endorses the patient's account of being dizzy and falling. Objective Vital Signs Date Time Temp Pulse Resp B/P (MAP) Pulse Ox O2 Delivery O2 Flow Rate FiO2 07/04/24 20:01 98.5 102 18 123/88 (100) 100 Room Air Result Diagram: 06/30/248 06/30/241847 Gen. No acute distress alert and oriented Lungs clear to ascultation bilaterally, no wheezes rales or rhonchi appreciated Heart normal sinus rhythm no murmurs rubs or clicks noted Abdomen soft nontender bowel sounds are normoactive Lower extremities no clubbing cyanosis, nor edema appreciated bilaterally Muscle skeletal- right knee unremarkable, left hip full range of motion with a negative MARA test, left knee noticeable popping and clicking with flexion extension Coagulation Studies Laboratory Tests Test 06/30/24 18:48 D-Dimer 0.98 MG/L FEU (0-0.50) H D-Dimer Comment Problem\Assessment\Plan #Acute psychosis Treatment per Psychiatric team. #Chronic psoriasis, not in exacerbation. #Left knee and hip strain Physical therapy Hospitalist team will continue to follow the patient while hospitalized at [facility] Date of Service: July 04, 2024 Billing Provider: LUANNE DUNHAM DO Common Visit Codes: [id number] INP/OBS CARE(MOD) LUANNE DUNHAM DO July 04, 2024 20:24
[2024-07-04] MEDS: OLANZAPINE 5 MG TABLET PO SCH (21:17)
[2024-07-05 07:00] VITALS: BP 124/76; PULSE 101; RESP 18; TEMP 98; O2SAT 100
[2024-07-05 07:50] VITALS: RESP 18; O2SAT 100
[2024-07-05] MEDS: hydrOXYzine 25 MG tablet PO ONE (14:06)
[2024-07-05] MEDS: LORazepam 0.5 MG tablet PO PRN (14:34)
[2024-07-05 18:44] VITALS: RESP 18; O2SAT 98
[2024-07-05 19:13] VITALS: BP 135/84; PULSE 105; RESP 16; TEMP 98.9; O2SAT 98
--- NOTE | 2024-07-05 19:21 | PROGRESS NOTE ---
Progress Note Dictate Providers to CC ~ Antibiotic Ordered?: No Objective Vitals Vital Signs Date Time Temp Pulse Resp B/P (MAP) Pulse Ox O2 Delivery O2 Flow Rate FiO2 07/05/24 18:44 18 98 Room Air 07/05/24 07:00 98.0 101 124/76 (92) Coagulation Studies Laboratory Tests Test 06/30/24 18:48 D-Dimer 0.98 MG/L FEU (0-0.50) H D-Dimer Comment Problem\Assessment\Plan Problems/Diagnosis: (1) Psychosis Psychiatrist's Progress Note Date of Service: July 05, 2024 Notes Johnna Dinh is an female with no known mental health history who presented to [facility] ED with complaints of anxiety and unusual behaviors. She was recently evaluated by a hospital in [place] last week. They did lab work. She talked with a psychiatrist and was d/c with Atarax. She has not seen improvement from medication. Family states she had a bad break up 2 months ago. Sister states that the patient is not making sense and is often talking to herself. CHART REVIEW: Calvin, her father was present at that interview with [facility]. He reports she is not alert and oriented. Johnna herself is a poor historian and often unable to provide any coherent information. Dad states they recently moved from [facility] due to persecution and were seeking asylum. Dad, Step Mom, and sister moved to [place]. Last April she seemed like herself when she visited her father. 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 She recently got a license and stressed about driving in [place]. At that point father stated he talked to over the phone. She was very talkative and was not sleeping. She had been talking with her boyfriend who then contacted her family as he was concerned about her behavior. She hadn't been sleeping, the hotel room was a mess, and she was screaming. She was taken to the ER. Stayed there 2d and given atarax, diagnosed with anxiety. Johnna and Johnna's sister flew to [place] to be with their father so he could help. She started to not sleep again. 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 She was talking more about anglican. The family are Advent but not overly so. Her behavior became erratic where she was standing on the balcony disrobed, was very entergetic and mumbled to herself. She was also becoming paranoid and thinking the neighbors were just standing in front of the door. She was not eating much and not sleeping. Patient was placed on a 5150 for GD. Assessment: Patient evaluated in the conference room, alert but exhibited disorganized thought process, symptoms seemed to worsen in the afternoon, per pt nurse, pt disrobed, speech was nonsensical, medication administered but had no affect. patient placed on life of sight. Will suspend Zyprexa and ability for now, Give awash out period before initiating medication again. Mental Status Mental Status Patient's appearance is appropriate. Behavior is described as bizarre and paranoid Psychomotor behaviors are slowed Speech is slow to respond. Often not responding appropriately Patient's affect : Blunted Mood : 'It's been a long day.' Sensorium- clouded and confused, a little less disorented consciousness. Patient's intellect is average. Attitude is cooperative. Attention is quite distracted Reasoning is poor Impulse control is poor Judgment is poor Insight is Poor Thought processes are circumstantial, tangential, Paranoid with buddhist delusions Thought content : Internal preoccupation, Denies auditory visual or tactile hallucinations, but heard and seen responding to internal stimuli. Having par anoid ideations The patient does not express suicidal ideation. The patient does not express homicidal ideation. Results Of any Diagn. Testing On Admission Labs CBC- WNL CMP- WNL TSH- 1.45 UTOX- NEG URINE-- small leuks no nitrites. No C&S indicated HCG- NEG Treatment D/c Seroquel 100 mg q hs D/c Suspend Abilify 15mg daily D/c Gabapentin 100 mg tid Hydroxyzine 50 mg q 6 prn anxiety Trazodone 50 mg q hs prn insomnia Monitoring by Staff, Milieu, Group, and Individual counseling as needed -- According to the [facility] Suicide Assessment the above named patient is on Q 15 MINUTE CHECKS. DTS/GD--VOL-- The patient does not have a good safety plan for discharge at this time. We are still titrating medications to an effective dose while maintaining a therapeutic environment to prevent decompensation and readmission. The patient is unable to formulate a viable plan for food, clothing and senior living. We are still titrating medications to an effective dose while maintaining a th erapeutic environment to prevent decompensation and readmission. CODING VISIT-PSYCHIATRY Date of Service: July 05, 2024 Billing Provider: SENAIT ARDON DNP Psych Common Visit Codes: [id number] INP/OBS CARE(Mod) Problem Qualifiers (1) Psychosis: SENAIT ARDON DNP July 05, 2024 19:21
[2024-07-06 07:45] VITALS: RESP 16; O2SAT 99
[2024-07-06 08:00] VITALS: BP 119/71; PULSE 106; RESP 16; TEMP 97.8; O2SAT 99
--- NOTE | 2024-07-06 15:34 | PROGRESS NOTE ---
Progress Note Dictate Providers to CC ~ Antibiotic Ordered?: No Objective Vitals Vital Signs Date Time Temp Pulse Resp B/P (MAP) Pulse Ox O2 Delivery O2 Flow Rate FiO2 07/06/24 08:00 97.8 106 16 119/71 (87) 99 Room Air Coagulation Studies Laboratory Tests Test 06/30/24 18:48 D-Dimer 0.98 MG/L FEU (0-0.50) H D-Dimer Comment Problem\Assessment\Plan Problems/Diagnosis: (1) Psychosis Psychiatrist's Progress Note Date of Service: July 06, 2024 Notes Johnna Dinh is an female with no known mental health history who presented to [facility] ED with complaints of anxiety and unusual behaviors. She was recently evaluated by a hospital in [place] last week. They did lab work. She talked with a psychiatrist and was d/c with Atarax. She has not seen improvement from medication. Family states she had a bad break up 2 months ago. Sister states that the patient is not making sense and is often talking to herself. CHART REVIEW: Calvin, her father was present at that interview with [facility]. He reports she is not alert and oriented. Johnna herself is a poor historian and often unable to provide any coherent information. Dad states they recently moved from [facility] due to persecution and were seeking asylum. Dad, Step Mom, and sister moved to [place]. Last April she seemed like herself when she visited her father. 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 She recently got a license and stressed about driving in [place]. At that point father stated he talked to over the phone. She was very talkative and was not sleeping. She had been talking with her boyfriend who then contacted her family as he was concerned about her behavior. She hadn't been sleeping, the hotel room was a mess, and she was screaming. She was taken to the ER. Stayed there 2d and given atarax, diagnosed with anxiety. Johnna and Johnna's sister flew to [place] to be with their father so he could help. She started to not sleep again. Working on [employer] content. She was talking more about sikh. The family are Alevism but not overly so. Her behavior became erratic where she was standing on the balcony disrobed, was very entergetic and mumbled to herself. She was also becoming paranoid and thinking the neighbors we re just standing in front of the door. She was not eating much and not sleeping. Patient was placed on a 5150 for GD. Assessment: Patient evaluated in the conference room, alert, pleasantly confused, does not know why she is in the hospital, seems overwhelmed, constantlly breathin in [place]. for the most part would just stare and smile at the provider. Per report, responded well to risperidone administered in the ER, will restart it again , will continue daily assessment and medication adjustments as needed to stabilize pt Mental Status Mental Status Patient's appearance is appropriate. Behavior is described as bizarre and paranoid Psychomotor behaviors are slowed Speech is slow to respond. Often not responding appropriately Patient's affect : Blunted Mood : 'It's been a long day.' Sensorium- clouded and confused, a little less disorented consciousness. Patient's intellect is average. Attitude is cooperative. Attention is quite distracted Reasoning is poor Impulse control is poor Judgment is poor Insight is Poor Thought processes are circumstantial, tangential, Paranoid with voodoo delusions Thought content : Internal preoccupation, Denies auditory visual or tactile hallucinations, but heard and seen responding to internal stimuli. Having paranoid ideations The patient does not express suicidal ideation. The patient does not express homicidal ideation. Results Of any Diagn. Testing On Admission Labs CBC- WNL CMP- WNL TSH- 1.45 UTOX- NEG URINE-- small leuks no nitrites. No C&S indicated HCG- NEG Treatment Start Risperidone 0.5 mg bid Hydroxyzine 50 mg q 6 prn anxiety Trazodone 50 mg q hs prn insomnia Monitoring by Staff, Milieu, Group, and Individual counseling as needed -- According to the [place] Suicide Assessment the above named patient is on Q 15 MINUTE CHECKS. DTS/GD--VOL-- The patient does not have a good safety plan for discharge at this time. We are still titrating medications to an effective dose while maintaining a therapeutic environment to prevent decompensation and readmission. The patient is unable to formulate a viable plan for food, clothing and senior care. We are still titrating medications to an effective dose while maintaining a therapeutic environment to prevent decompensation and readmission. CODING VISIT-PSYCHIATRY Date of Service: July 06, 2024 Billing Provider: SENAIT ARDON DNP Psych Common Visit Codes: [id number] INP/OBS CARE(Mod) Problem Qualifiers (1) Psychosis: SENAIT ARDON DNP July 06, 2024 15:34
--- NOTE | 2024-07-06 16:18 | PROGRESS NOTE- Residence ---
Progress Note - Resident Providers to CC Resident Creating Document: GABRIEL ARNETT CC: TERI CARABALLO MD ~ Antibiotic Timeout Antibiotic Ordered?: No Subjective Patient was seen in [facility] unit today. Reports mild headaches occasionally. Otherwise denies any medical complaints at this time Objective Vital Signs Date Time Temp Pulse Resp B/P (MAP) Pulse Ox O2 Delivery O2 Flow Rate FiO2 07/06/24 08:00 97.8 106 16 119/71 (87) 99 Room Air General: Alert and awake HEENT: No pallor present, no icterus, moist mucous membranes Neck: No masses and tenderness Resp: Unlabored. Lungs clear to auscultation bilaterally. Heart: Regular Rate and rhythm, normal S1 and S2 without murmur, rub or gallop Abdomen: Soft and non tender no organomegaly, no guarding and rigidity, bowel sounds present Neuro: No weakness in the upper and lower limb muscles, power of the muscles 5/5 bilateral upper and lower muscles, knee reflex present bilaterally. Cranial nerves intact Extremities: No cyanosis,clubbing or edema Skin: Warm and Dry. No lesions Coagulation Studies Laboratory Tests Test 06/30/24 18:48 D-Dimer 0.98 MG/L FEU (0-0.50) H D-Dimer Comment Plan Plan Psychosis Management per psychiatry No medical complaints at this time Most recent labs reviewed Gabriel Gonzalez MD Internal Medicine Resident PGY-1 Date of Service: July 06, 2024 Billing Provider: TEIR CARABALLO MD, LEONARDO LUIS July 06, 2024 16:18
[2024-07-06 18:46] VITALS: RESP 18; O2SAT 99
[2024-07-06 20:02] VITALS: BP 131/88; PULSE 114; RESP 16; TEMP 97.8; O2SAT 99
[2024-07-06] MEDS: risperiDONE 0.25mg tablet PO SCH (21:10)
[2024-07-07 07:35] VITALS: BP 115/81; PULSE 89; RESP 16; TEMP 97.6; O2SAT 99
[2024-07-07 08:17] VITALS: RESP 16; O2SAT 99
[2024-07-07] MEDS: haloperidol lactate 5mg/ml inj IM ONE (09:48)
[2024-07-07] MEDS: diphenhydrAMINE 50 mg/ml inj IM ONE (09:48)
[2024-07-07] MEDS: LORazepam 2 mg/ml vial IM STA (09:48)
--- NOTE | 2024-07-07 15:06 | PROGRESS NOTE ---
Progress Note Dictate Providers to CC ~ Antibiotic Ordered?: No Objective Vitals Vital Signs Date Time Temp Pulse Resp B/P (MAP) Pulse Ox O2 Delivery O2 Flow Rate FiO2 07/07/24 08:17 16 99 Room Air 07/07/24 07:35 97.6 89 115/81 (92) Coagulation Studies Laboratory Tests Test 06/30/24 18:48 D-Dimer 0.98 MG/L FEU (0-0.50) H D-Dimer Comment Problem\Assessment\Plan Problems/Diagnosis: (1) Psychosis Psychiatrist's Progress Note Date of Service: July 07, 2024 Notes Johnna Dinh is an female with no known mental health history who presented to [facility] ED with complaints of anxiety and unusual behaviors. She was recently evaluated by a hospital in [place] last week. They did lab work. She talked with a psychiatrist and was d/c with Atarax. She has not seen improvement from medication. Family states she had a bad break up 2 months ago. Sister states that the patient is not making sense and is often talking to herself. CHART REVIEW: Calvin, her father was present at that interview with [facility]. He reports she is not alert and oriented. Johnna herself is a poor historian and often unable to provide any coherent information. Dad states they recently moved from [facility] due to persecution and were seeking asylum. Dad, Step Mom, and sister moved to [place]. Last April she seemed like herself when she visited her father. 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. 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 She recently got a license and stressed about driving in [place]. At that point father stated he talked to over the phone. She was very talkative and was not sleeping. She had been talking with her boyfriend who then contacted her family as he was concerned about her behavior. She hadn't been sleeping, the hotel room was a mess, and she was screaming. She was taken to the ER. Stayed there 2d and given atarax, diagnosed with anxiety. Johnna and Johnna's sister flew to [place] to be with their father so he could help. She started to not sleep again. 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 She was talking more about sikh. The family are Denominational but not overly so. Her behavior became erratic where she was standing on the balcony disrobed, was very entergetic and mumbled to herself. She was also becoming paranoid and thinking the neighbors were just standing in front of the door. She was not eating much and not sleeping. Patient was placed on a 5150 for GD. Assessment: Patient evaluated in the conference room,Patient continous to exhibit acute psychiatric symptoms, presents asconfused, speech is nonsensical, poor insight and judgment exhibiting inappropriate behavior and lack of awareness of her environment, twice now has disrobed in-front of others patients. Liane needs constant supervision due to ongoing psychiatric symptoms, will continue daily assessment and medication adjustments as needed to stabilize pt Mental Status Mental Status Patient's appearance is appropriate. Behavior is described as bizarre and paranoid Psychomotor behaviors are slowed Speech is slow to respond. Often not responding appropriately Patient's affect : Blunted Mood : 'It's been a long day.' Sensorium- clouded and confused, a little less disorented consciousness. Patient's intellect is average. Attitude is cooperative. Attention is quite distracted Reasoning is poor Impulse control is poor Judgment is poor Insight is Poor Thought processes are circumstantial, tangential, Paranoid with pentecostal delusions Thought content : Internal preoccupation, Denies auditory visual or tactile hallucinations, but heard and seen responding to internal stimuli. Having paranoid ideations The patient does not express suicidal ideation. The patient does not express homicidal ideation. Results Of any Diagn. Testing On Admission Labs CBC- WNL CMP- WNL TSH- 1.45 UTOX- NEG URINE-- small leuks no nitrites. No C&S indicated HCG- NEG Treatment Increase Risperidone dose to 1 mg bid Hydroxyzine 50 mg q 6 prn anxiety Trazodone 50 mg q hs prn insomnia Monitoring by Staff, Milieu, Group, and Individual counseling as needed -- According to the [place] Suicide Assessment the above named patient is on Q 15 MINUTE CHECKS. DTS/GD--VOL-- The patient does not have a good safety plan for discharge at this time. We are still titrating medications to an effective dose while maintaining a therapeutic environment to prevent decompensation and readmission. The patient is unable to formulate a viable plan for food, clothing and halfway. We are still titrating medications to an effective dose while maintaining a therapeutic environment to prevent decompensation and readmission. CODING VISIT-PSYCHIATRY Date of Service: July 07, 2024 Billing Provider: SENAIT ARDON DNP Psych Common Visit Codes: [id number] INP/OBS CARE(Mod) Problem Qualifiers (1) Psychosis: SENAIT ARDON DNP July 07, 2024 15:06
[2024-07-07 19:00] VITALS: RESP 18
[2024-07-07 20:00] VITALS: RESP 18
[2024-07-07] MEDS: traZODone 50mg tablet PO PRN (20:53)
[2024-07-08] MEDS: diphenhydrAMINE 25mg capsule PO PRN (06:58)
[2024-07-08 07:07] VITALS: RESP 16
[2024-07-08 07:50] VITALS: BP 124/82; PULSE 104; RESP 12; TEMP 97.8; O2SAT 98
[2024-07-08] MEDS: risperiDONE 0.25mg tablet PO ONE (11:28)
--- NOTE | 2024-07-08 13:38 | PROGRESS NOTE ---
Progress Note Dictate Providers to CC ~ Central Line/PICC still needed: N\A Antibiotic Ordered?: No MRSA Education MRSA Education Provided to pt: No Objective Vitals Vital Signs Date Time Temp Pulse Resp B/P (MAP) Pulse Ox O2 Delivery O2 Flow Rate FiO2 07/08/24 07:50 97.8 104 12 124/82 (96) 98 Room Air Coagulation Studies Laboratory Tests Test 06/30/24 18:48 D-Dimer 0.98 MG/L FEU (0-0.50) H D-Dimer Comment Psychiatrist's Progress Note Date of Service: July 08, 2024 Notes Johnna Dinh is an female with no known mental health history who presented to [facility] ED with complaints of anxiety and unusual behaviors. She was recently evaluated by a hospital in [place] last week. They did lab work. She talked with a psychiatrist and was d/c with Atarax. She has not seen improvement from medication. Family states she had a bad break up 2 months ago. Sister states that the patient is not making sense and is often talking to herself. CHART REVIEW: Calvin, her father was present at that interview with [facility]. He reports she is not alert and oriented. Johnna herself is a poor historian and often unable to provide any coherent information. Dad states they recently moved from [facility] due to persecution and were seeking asylum. Dad, Step Mom, and sister moved to [place]. Last April she seemed like herself when she visited her father. 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 She recently got a license and stressed about driving in [place]. At that point father stated he talked to over the phone. She was very talkative and was not sleeping. She had been talking with her boyfriend who then contacted her family as he was concerned about her behavior. She hadn't been sleeping, the hotel room was a mess, and she was screaming. She was taken to the ER. Stayed there 2d and given atarax, diagnosed with anxiety. Johnna and Johnna's sister flew to [place] to be with their father so he could help. She started to not sleep again. 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 She was talking more about religious. The family are Adventism but not overly so. Her behavior became erratic where she was standing on the balcony disrobed, was very entergetic and mumbled to herself. She was also becoming paranoid and thinking the neighbors were just standing in front of the door. She was not eating much and not sleeping. Patient was placed on a 5150 for GD. Assessment: Patient evaluated in the observation room. Patient presents as , confused, distracted, uncooperative and making nonsensical statements while laughing and staring at this engineering technical writer. Liane needs constant supervision due to ongoing psychiatric symptoms, will continue daily assessment and medication adjustments as needed to stabilize pt Mental Status Mental Status Patient's appearance is appropriate. Behavior is described as bizarre and paranoid Attitude uncooperative. Attention is quite distracted Judgment is poor Insight is Poor Results Of any Diagn. Testing On Admission Labs CBC- WNL CMP- WNL TSH- 1.45 UTOX- NEG URINE-- small leuks no nitrites. No C&S indicated HCG- NEG Treatment Risperidone dose to 1 mg bid Hydroxyzine 50 mg q 6 prn anxiety Trazodone 50 mg q hs prn insomnia Monitoring by Staff, Milieu, Group, and Individual counseling as needed -- According to the [place] Suicide Assessment the above named patient is on Q 15 MINUTE CHECKS. 5250-DTS/GD--VOL-- The patient does not have a good safety plan for discharge at this time. We are still titrating medications to an effective dose while maintaining a therapeutic environment to prevent decompensation and readmission. The patient is unable to formulate a viable plan for food, clothing and [facility]. We are still titrating medications to an effective dose while maintaining a therapeutic environment to prevent decompensation and readmission. CODING VISIT-PSYCHIATRY Date of Service: July 08, 2024 Billing Provider: URIEL SELBY APRN Psych Common Visit Codes: [id number] INP/OBS CARE(Mod) URIEL SELBY APRN July 08, 2024 13:38
--- NOTE | 2024-07-08 14:22 | PROGRESS NOTE- Residence ---
Progress Note - Resident Providers to CC Resident Creating Document: GABRIEL ARNETT CC: TERI CARABALLO MD ~ Antibiotic Timeout Antibiotic Ordered?: No Subjective Patient was seen in [facility] unit today. She seemed to be having a bout of psychosis and only said the words "soccer" and "tennis". Had a bowel movement today per nurse Objective Vital Signs Date Time Temp Pulse Resp B/P (MAP) Pulse Ox O2 Delivery O2 Flow Rate FiO2 07/08/24 07:50 97.8 104 12 124/82 (96) 98 Room Air General: Alert and awake, slightly agitated, mouthing random words Rest of exam deferred Coagulation Studies Laboratory Tests Test 06/30/24 18:48 D-Dimer 0.98 MG/L FEU (0-0.50) H D-Dimer Comment Plan Plan Psychosis Management per psychiatry Most recent labs reviewed Hospitalist team will continue to follow patient Gabriel Gonzalez MD Internal Medicine Resident PGY-1 Date of Service: July 08, 2024 Billing Provider: TERI CARABALLO MD, LEONARDO LUIS July 08, 2024 14:22
[2024-07-08] MEDS: risperiDONE 0.5mg tablet PO SCH (19:00)
[2024-07-08 19:20] VITALS: RESP 18; O2SAT 99
[2024-07-08 19:51] VITALS: BP 114/68; PULSE 106; RESP 18; TEMP 98.1; O2SAT 96
[2024-07-09 07:00] VITALS: RESP 15
[2024-07-09 08:00] VITALS: RESP 15
--- NOTE | 2024-07-09 11:46 | PROGRESS NOTE ---
Progress Note Dictate Providers to CC ~ Central Line/PICC still needed: N\A Antibiotic Ordered?: No MRSA Education MRSA Education Provided to pt: No Objective Vitals Vital Signs Date Time Temp Pulse Resp B/P (MAP) Pulse Ox O2 Delivery O2 Flow Rate FiO2 07/09/24 08:00 15 07/08/24 19:51 98.1 106 114/68 (83) 96 Room Air Coagulation Studies Laboratory Tests Test 06/30/24 18:48 D-Dimer 0.98 MG/L FEU (0-0.50) H D-Dimer Comment Psychiatrist's Progress Note Date of Service: July 09, 2024 Notes Johnna Dinh is an female with no known mental health history who presented to [facility] ED with complaints of anxiety and unusual behaviors. She was recently evaluated by a hospital in [place] last week. They did lab work. She talked with a psychiatrist and was d/c with Atarax. She has not seen improvement from medication. Family states she had a bad break up 2 months ago. Sister states that the patient is not making sense and is often talking to herself. CHART REVIEW: Calvin, her father was present at that interview with [facility]. He reports she is not alert and oriented. Johnna herself is a poor historian and often unable to provide any coherent information. Dad states they recently moved from [facility] due to persecution and were seeking asylum. Dad, Step Mom, and sister moved to [place]. Last April she seemed like herself when she visited her father. 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 She recently got a license and stressed about driving in [place]. At that point father stated he talked to over the phone. She was very talkative and was not sleeping. She had been talking with her boyfriend who then contacted her family as he was concerned about her behavior. She hadn't been sleeping, the hotel room was a mess, and she was screaming. She was taken to the ER. Stayed there 2d and given atarax, diagnosed with anxiety. Johnna and Johnna's sister flew to [place] to be with their father so he could help. She s tarted to not sleep again. Working on [email or web address] content. She was talking more about yarsanism. The family are Muslim but not overly so. Her behavior became erratic where she was standing on the balcony disrobed, was very entergetic and mumbled to herself. She was also becoming paranoid and thinking the neighbors were just standing in front of the door. She was not eating much and not sleeping. Patient was placed on a 5150 for GD. Assessment: Patient evaluated in the observation room. The patietn was actively walking in the hallway with 1:1 caregiver. Patient presents as confused, distracted, uncooperative and impoverished speech. The patietn sat in the chair and starred at the floor. Liane needs constant supervision due to ongoing psychiatric symptoms, will continue daily assessment and medication adjustments as needed to stabilize pt Mental Status Patient's appearance is appropriate. Behavior is described as bizarre and paranoid Attitude uncooperative. Attention is quite distracted Judgment is poor Insight is Poor Results Of any Diagn. Testing On Admission Labs CBC- WNL CMP- WNL TSH- 1.45 UTOX- NEG URINE-- small leuks no nitrites. No C&S indicated HCG- NEG Treatment Risperidone dose to 1 mg bid Hydroxyzine 50 mg q 6 prn anxiety Trazodone 50 mg q hs prn insomnia Monitoring by Staff, Milieu, Group, and Individual counseling as needed -- According to the [place] Suicide Assessment the above named patient is on Q 15 MINUTE CHECKS. 5250-DTS/GD--VOL-- The patient does not have a good safety plan for discharge at this time. We are still titrating medications to an effective dose while maintaining a therapeutic environment to prevent decompensation and readmission. The patient is unable to formulate a viable plan for food, clothing and fci. We are still titrating medications to an effective dose while maintaining a therapeutic environment to prevent decompensation and readmission. CODING VISIT-PSYCHIATRY Date of Service: July 09, 2024 Billing Provider: URIEL SELBY APRN Psych Common Visit Codes: [id number] INP/OBS CARE(Mod) URIEL SELBY APRN July 09, 2024 11:46
[2024-07-09 19:00] VITALS: RESP 18; O2SAT 100
[2024-07-09 20:00] VITALS: BP 124/89; PULSE 87; RESP 16; TEMP 97.1; O2SAT 100
[2024-07-10 07:00] VITALS: RESP 16; O2SAT 97
[2024-07-10 08:00] VITALS: BP 122/86; PULSE 112; RESP 16; TEMP 97.5; O2SAT 97
--- NOTE | 2024-07-10 10:06 | PROGRESS NOTE ---
Progress Note Dictate Providers to CC ~ Antibiotic Ordered?: No Objective Vitals Vital Signs Date Time Temp Pulse Resp B/P (MAP) Pulse Ox O2 Delivery O2 Flow Rate FiO2 07/10/24 08:00 97.5 112 16 122/86 (98) 97 Room Air Coagulation Studies Laboratory Tests Test 06/30/24 18:48 D-Dimer 0.98 MG/L FEU (0-0.50) H D-Dimer Comment Problem\\Assessment\\Plan Problems/Diagnosis: (1) Psychosis Psychiatrist's Progress Note Date of Service: July 10, 2024 Notes Johnna Dinh is an female with no known mental health history who presented to [facility] ED with complaints of anxiety and unusual behaviors. She was recently evaluated by a hospital in [place] last week. They did lab work. She talked with a psychiatrist and was d/c with Atarax. She has not seen improvement from medication. Family states she had a bad break up 2 months ago. Sister states that the patient is not making sense and is often talking to herself. CHART REVIEW: Calvin, her father was present at that interview with [facility]. He reports she is not alert and oriented. Johnna herself is a poor historian and often unable to provide any coherent information. Dad states they recently moved from [facility] due to persecution and were seeking asylum. Dad, Step Mom, and sister moved to [place]. Last April she seemed like herself when she visited her father. 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 She recently got a license and stressed about driving in [place]. At that point father stated he talked to over the phone. She was very talkative and was not sleeping. She had been talking with her boyfriend who then contacted her family as he was concerned about her behavior. She hadn't been sleeping, the hotel room was a mess, and she was screaming. She was taken to the ER. Stayed there 2d and given atarax, diagnosed with anxiety. Johnna and Johnna's sister flew to [place] to be with their father so he could help. She started to not sleep again. Working on [employer] content. She was talking more about samaritan. The family are Mu-Ism but not overly so. Her behavior became erratic where she was standing on the balcony disrobed, was very entergetic and mumbled to herself. She was also becoming paranoid and thinking the neighbors we re just standing in front of the door. She was not eating much and not sleeping. Patient was placed on a 5150 for GD. Assessment: Patient evaluated in the conference room, she affect was flat, presented with nonsensical and disorganized speech repeatedly stating " you kow why I am here". Her behavior was erratic, appeared disoriented,she was observed pacing around the room, frequently looking under the table, and approaching the window repeatedly. Throughout the evaluation, she required constant redirection. It is not advisable to discharge this patient at this time due to high risk of safety concerns Mental Status Patient's appearance is appropriate. Behavior is bizarre Psychomotor behaviors are slowed Speech is nonsensical Patient's affect : flat Sensorium- clouded and confused,. Attitude is cooperative. Attention is quite distracted Reasoning is poor Impulse control is poor Judgment is poor Insight is Poor Results Of any Diagn. Testing On Admission Labs CBC- WNL CMP- WNL TSH- 1.45 UTOX- NEG URINE-- small leuks no nitrites. No C&S indicated HCG- NEG Treatment Weekly CBC Start Clozaril 25 mg titrating up daily to therapeutic dose Reduce Risperidone dose to 0.25 mg bid Hydroxyzine 50 mg q 6 prn anxiety Trazodone 50 mg q hs prn insomnia Monitoring by Staff, Milieu, Group, and Individual counseling as needed -- Acco rding to the [place] Suicide Assessment the above named patient is on Q 15 MINUTE CHECKS. Total Time Spent: 45 minutes, including but not limited to assessment of the patient, review of chart and EMR, discussion and consulting with social work, staff, and the assigned nurse, review of medications, and prescribing medications and charting. DTS/GD--5250-- The patient does not have a good safety plan for discharge at this time. We are still titrating medications to an effective dose while maintaining a therapeutic environment to prevent decompensation and readmission. CODING VISIT-PSYCHIATRY Date of Service: July 10, 2024 Billing Provider: SENAIT ARDON DNP Psych Common Visit Codes: [id number] INP/OBS CARE(Mod) Problem Qualifiers (1) Psychosis: SENAIT ARDON DNP July 10, 2024 10:05
[2024-07-10] MEDS: clozapine 25mg tablet PO ONE (11:21)
--- NOTE | 2024-07-10 19:18 | PROGRESS NOTE- Residence ---
Progress Note - Resident Providers to CC Resident Creating Document: GABRIEL ARNETT CC: TERI CARABALLO MD ~ Antibiotic Timeout Antibiotic Ordered?: No Subjective Patient was seen in [facility] unit today. Patient was walking in circles and making random comments. She did mention not having any medical complaints Objective Vital Signs Date Time Temp Pulse Resp B/P (MAP) Pulse Ox O2 Delivery O2 Flow Rate FiO2 07/10/24 08:00 97.5 112 16 122/86 (98) 97 Room Air General: Alert and awake, mouthing random words HEENT: No pallor present, no icterus, moist mucous membranes Neck: No masses and tenderness Resp: Unlabored. Lungs clear to auscultation bilaterally. Heart: Regular Rate and rhythm, normal S1 and S2 without murmur, rub or gallop Abdomen: Soft and non tender no organomegaly, no guarding and rigidity, bowel sounds present Neuro: No weakness in the upper and lower limb muscles, power of the muscles 5/5 bilateral upper and lower muscles, knee reflex present bilaterally. Cranial nerves intact Extremities: No cyanosis,clubbing or edema Skin: Warm and Dry. No lesions Coagulation Studies Laboratory Tests Test 06/30/24 18:48 D-Dimer 0.98 MG/L FEU (0-0.50) H D-Dimer Comment Plan Plan Psychosis Management per psychiatry Most recent labs reviewed Hospitalist team will continue to follow patient Gabriel Gonzalez MD Internal Medicine Resident PGY-1 Date of Service: July 10, 2024 Billing Provider: TERI CARABALLO MD, LEONARDO LUIS July 10, 2024 19:18
[2024-07-10 19:25] VITALS: RESP 18; O2SAT 99
[2024-07-10 19:27] VITALS: BP 140/87; PULSE 115; RESP 18; TEMP 98.2; O2SAT 98
[2024-07-10] MEDS: risperiDONE 0.25mg tablet PO SCH (20:04)
[2024-07-11 07:00] VITALS: RESP 16; O2SAT 98
[2024-07-11] MEDS: clozapine 25mg tablet PO SCH (07:20)
[2024-07-11 08:00] VITALS: BP 107/71; PULSE 68; RESP 16; TEMP 98.3; O2SAT 100
[2024-07-11 11:00] LABS: BASOPHILS # (AUTO) 0.1 X10'3 (0-0.2); BASOPHILS % (AUTO) 0.9 % (0-1); EOSINOPHILS # (AUTO) 0.2 X10'3 (0-0.9); EOSINOPHILS % (AUTO) 3.5 % (0-6); HEMATOCRIT 34.9 % (35.0-45.0); HEMOGLOBIN 11.5 g/dl (12.0-16.0); LYMPHOCYTES # (AUTO) 1.5 X10'3 (1.1-4.8); LYMPHOCYTES % (AUTO) 25.7 % (21-51); MEAN CORPUSCULAR HEMOGLOBIN 24.5 PG (27.0-31.0); MEAN CORPUSCULAR HGB CONC 32.9 g/dL (33.0-36.5); MEAN CORPUSCULAR VOLUME 74.7 FL (78-98); MEAN PLATELET VOLUME 7.1 FL (7.4-10.4); MONOCYTES # (AUTO) 0.5 X10'3 (0-0.9); MONOCYTES % (AUTO) 7.6 % (2-12); NEUTROPHILS # (AUTO) 3.7 X10'3 (1.8-7.7); NEUTROPHILS % (AUTO) 62.3 % (42-75); PLATELET COUNT 497 X10'3 (140-440); RED BLOOD COUNT 4.67 X10'6 (4.20-5.60); RED CELL DISTRIBUTION WIDTH 18.2 % (11.5-14.5); WHITE BLOOD COUNT 5.9 X10'3 (4.5-11.0)
--- NOTE | 2024-07-11 15:51 | PROGRESS NOTE ---
Progress Note Dictate Providers to CC ~ Antibiotic Ordered?: No Objective Vitals Vital Signs Date Time Temp Pulse Resp B/P (MAP) Pulse Ox O2 Delivery O2 Flow Rate FiO2 07/11/24 08:00 98.3 68 16 107/71 (83) 100 Room Air Lab Results: 07/11/24 1049 Coagulation Studies Laboratory Tests Test 06/30/24 18:48 D-Dimer 0.98 MG/L FEU (0-0.50) H D-Dimer Comment Problem\Assessment\Plan Problems/Diagnosis: (1) Psychosis Psychiatrist's Progress Note Date of Service: July 11, 2024 Notes Johnna Dinh is an female with no known mental health history who presented to [facility] ED with complaints of anxiety and unusual behaviors. She was recently evaluated by a hospital in [place] last week. They did lab work. She talked with a psychiatrist and was d/c with Atarax. She has not seen improvement from medication. Family states she had a bad break up 2 months ago. Sister states that the patient is not making sense and is often talking to herself. CHART REVIEW: Calvin, her father was present at that interview with [facility]. He reports she is not alert and oriented. Johnna herself is a poor historian and often unable to provide any coherent information. Dad states they recently moved from [facility] due to persecution and were seeking asylum. Dad, Step Mom, and sister moved to [place]. Last April she seemed like herself when she visited her father. 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 She recently got a license and stressed about driving in [place]. At that point father stated he talked to over the phone. She was very talkative and was not sleeping. She had been talking with her boyfriend who then contacted her family as he was concerned about her behavior. She hadn't been sleeping, the hotel room was a mess, and she was screaming. She was taken to the ER. Stayed there 2d and given atarax, diagnosed with anxiety. Johnna and Johnna's sister flew to [place] to be with their father so he could help. She started to not sleep again. Working on [employer] content. She was talking more about jehovah's witness. The family are Zoroastrianism but not overly so. Her behavior became erratic where she was standing on the balcony disrobed, was very entergetic and mumbled to herself. She was also becoming paranoid and thinking the neighbors were just standing in front of the door. She was not eating much and not sleeping. Patient was placed on a 5150 for GD. Assessment: Patient evaluated in the conference room, Johnna was started on Clozaril yesterday which seems to have an affective response. Today, patient shows significant improvement in her symptoms. She appears clearer and more oriented, which is a positive change from her previous state. She was smiling and able to engage in coherent conversations, a marked improvement in her communicative abilities. Johnna discussed her numerous jobs and expressed a strong desire to return to work, indicating a positive shift in her mood and cognitive clarity. Her ability to hold a coherent conversation and discuss future plans suggests an improvement in her thought processes and a reduction in disorganized thinking. Will continue daily assessments and medication adjustments as needed to stabilize patient further. Mental Status Patient's appearance is appropriate. Behavior : calm, cooperative Psychomotor behaviors are slowed Speech , clear , normal tone/rate Patient's affect : flat Attitude is cooperative. Attention is normal Reasoning is fair Judgment is fair Insight is fair Results Of any Diagn. Testing On Admission Labs CBC- WNL CMP- WNL TSH- 1.45 UTOX- NEG URINE-- small leuks no nitrites. No C&S indicated HCG- NEG Treatment Weekly CBC Increase Clozaril 25 mg frequeb=ncy to bid Risperidone 0.25 mg bid Hydroxyzine 50 mg q 6 prn anxiety Trazodone 50 mg q hs prn insomnia Monitoring by Staff, Milieu, Group, and Individual counseling as needed -- According to the [place] Suicide Assessment the above named patient is on Q 15 MINUTE CHECKS. DTS/GD--5250-- The patient does not have a good safety plan for discharge at this time. We are still titrating medications to an effective dose while maintaining a therapeutic environment to prevent decompensation and readmission. Total Time Spent: 45 minutes, including but not limited to assessment of the patient, review of RN notes, hospitalists' notes, vital signs, labs, EMR, discussion and consulting with social work, staff, and the assigned nurse, review of medications, and prescribing medications and charting. Since PT.'S Admission CODING VISIT-PSYCHIATRY Date of Service: July 11, 2024 Billing Provider: SENAIT ARDON DNP Psych Common Visit Codes: [id number] INP/OBS CARE(Mod) Problem Qualifiers (1) Psychosis: SENAIT ARDON DNP July 11, 2024 15:51
[2024-07-11 18:54] VITALS: RESP 20; O2SAT 99
[2024-07-11 19:30] VITALS: BP 135/84; PULSE 112; RESP 18; TEMP 98.3; O2SAT 98
[2024-07-12 07:30] VITALS: BP 121/82; PULSE 114; RESP 16; TEMP 97.8; O2SAT 99
--- NOTE | 2024-07-12 13:43 | PROGRESS NOTE ---
Daily Progress Note Providers to CC ~ Antibiotic Timeout Antibiotic Ordered?: No Subjective Chief Complaint-- I have had so many x-rays I am a normal healthy 24-year-old adult I have no medical problems I have no health issues I do not think I need anymore testing. Review of systems negative for all 10 systems reviewed Objective Vital Signs Date Time Temp Pulse Resp B/P (MAP) Pulse Ox O2 Delivery O2 Flow Rate FiO2 07/12/24 07:30 97.8 114 16 121/82 (95) 99 Room Air Result Diagram: 07/11/24 1049 Patient is alert and oriented x3 no acute distress walking around comfortably her father's visiting. HEENT normocephalic nontraumatic head CVS first and second heart sounds are regular rate rhythm no murmurs gallops or rubs Respiratory system is clear to auscultate bilaterally no rales rhonchi crackles or wheezing Abdomen is soft scaphoid bowel sounds positive Extremities no clubbing cyanosis or edema Coagulation Studies Laboratory Tests Test 06/30/24 18:48 D-Dimer 0.98 MG/L FEU (0-0.50) H D-Dimer Comment Problem\Assessment\Plan #Acute psychosis Treatment per Psychiatric team. #Chronic psoriasis, not in exacerbation. #Left knee and hip strain -resolved Physical therapy Hospitalist team will continue to follow the patient while hospitalized at [facility] Date of Service: July 12, 2024 Billing Provider: DUC GONZALES MD Common Visit Codes: [id number] INP/OBS CARE(LOW) DUC GONZALES MD July 12, 2024 13:43
--- NOTE | 2024-07-12 17:06 | PROGRESS NOTE ---
Progress Note Dictate Providers to CC ~ Antibiotic Ordered?: No Objective Vitals Vital Signs Date Time Temp Pulse Resp B/P (MAP) Pulse Ox O2 Delivery O2 Flow Rate FiO2 07/12/24 07:30 97.8 114 16 121/82 (95) 99 Room Air Lab Results: 07/11/24 1049 Coagulation Studies Laboratory Tests Test 06/30/24 18:48 D-Dimer 0.98 MG/L FEU (0-0.50) H D-Dimer Comment Problem\\Assessment\\Plan Problems/Diagnosis: (1) Psychosis Psychiatrist's Progress Note Date of Service: July 12, 2024 Notes Johnna Dinh is an female with no known mental health history who presented to [facility] ED with complaints of anxiety and unusual behaviors. She was recently evaluated by a hospital in [place] last week. They did lab work. She talked with a psychiatrist and was d/c with Atarax. She has not seen improvement from medication. Family states she had a bad break up 2 months ago. Sister states that the patient is not making sense and is often talking to herself. Patient was placed on a 5150 for GD. CHART REVIEW: Calvin, her father was present at that interview with [facility]. He reports she is not alert and oriented. Johnna herself is a poor historian and often unable to provide any coherent information. Dad states they recently moved from [facility] due to persecution and were seeking asylum. Dad, Step Mom, and sister moved to [place]. Last April she seemed like herself when she visited her father. 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 She recently got a license and stressed about driving in [place]. At that point father stated he talked to over the phone. She was very talkative and was not sleeping. She had been talking with her boyfriend who then contacted her family as he was concerned about her behavior. She hadn't been sleeping, the hotel room was a mess, and she was screaming. She was taken to the ER. Stayed there 2d and given atarax, diagnosed with anxiety. Johnna and Johnna's sister flew to [place] to be with their father so he could help. She started to not sleep again. Working on [employer] content. She was talking more about methodist. The family are Methodist but not overly so. Her behavior became erratic where she was standing on the balcony disrobed, was very entergetic and mumbled to herself. She was also becoming paranoid and thinking the neighbors were just standing in front of the door. She was not eating much and not sleeping. Assessment: Patient evaluated in the conference room, patient is alert, oriented to place, person and situation, in no acute distress, was able to participate in her treatment, states she slept good, felt a little disoriented when she got up this morning but felt the mental fog clearing up within an hour,states she feel ready to return to work, worried about her younger siblings because she was providing for them. Tries to leave the unit not because she is psychotic but wants to leave desperately so that she can be with her family " staying here is actually making my mental states worse" advised patient that even though she is showing good progress, we have to make sure the progress is sustainable upon discharge, still titrating tx at this time to stabilize further Mental Status Patient's appearance is appropriate. Behavior : calm, cooperative Psychomotor behaviors are slowed Speech , clear , normal tone/rate Patient's affect : labile Attitude is cooperative. Attention is normal Reasoning is fair Judgment is fair Insight is fair Results Of any Diagn. Testing On Admission Labs CBC- WNL CMP- WNL TSH- 1.45 UTOX- NEG URINE-- small leuks no nitrites. No C&S indicated HCG- NEG Treatment Weekly CBC Increase Clozaril to 50 mg frequency to bid Risperidone 0.25 mg bid Hydroxyzine 50 mg q 6 prn anxiety Trazodone 50 mg q hs prn insomnia Monitoring by Staff, Milieu, Group, and Individual counseling as needed -- According to the [place] Suicide Assessment the above named patient is on Q 15 MINUTE CHECKS. DTS/GD--2250-- The patient does not have a good safety plan for discharge at this time. We are still titrating medications to an effective dose while maintaining a therapeutic environment to prevent decompensation and readmission. Total Time Spent: 50 minutes, including but not limited to assessment of the patient, review of RN notes, hospitalists' notes, vital signs, labs, EMR, discussion and consulting with social work, staff, and the assigned nurse, review of medications, and prescribing medications and charting. CODING VISIT-PSYCHIATRY Date of Service: July 12, 2024 Billing Provider: SENAIT ARDON DNP Psych Common Visit Codes: [id number] INP/OBS CARE(Mod) Problem Qualifiers (1) Psychosis: SENAIT ARDON DNP July 12, 2024 17:06
[2024-07-12 19:00] VITALS: RESP 18; O2SAT 98
[2024-07-12 20:13] VITALS: BP 129/82; PULSE 100; RESP 18; TEMP 98; O2SAT 98
[2024-07-13] MEDS: clozapine 25mg tablet PO SCH (07:23)
[2024-07-13 07:30] VITALS: BP 132/92; PULSE 96; RESP 16; TEMP 96.6; O2SAT 100
[2024-07-13 19:00] VITALS: RESP 18; O2SAT 99
--- NOTE | 2024-07-13 19:46 | PROGRESS NOTE ---
Progress Note Dictate Providers to CC ~ Antibiotic Ordered?: No Objective Vitals Vital Signs Date Time Temp Pulse Resp B/P (MAP) Pulse Ox O2 Delivery O2 Flow Rate FiO2 07/13/24 07:30 96.6 96 16 132/92 (105) 100 Room Air Lab Results: 07/11/24 1049 Coagulation Studies Laboratory Tests Test 06/30/24 18:48 D-Dimer 0.98 MG/L FEU (0-0.50) H D-Dimer Comment Problem\Assessment\Plan Problems/Diagnosis: (1) Psychosis Psychiatrist's Progress Note Date of Service: July 13, 2024 Notes Johnna Dinh is an female with no known mental health history who presented to [facility] ED with complaints of anxiety and unusual behaviors. She was recently evaluated by a hospital in [place] last week. They did lab work. She talked with a psychiatrist and was d/c with Atarax. She has not seen improvement from medication. Family states she had a bad break up 2 months ago. Sister states that the patient is not making sense and is often talking to herself. CHART REVIEW: Calvin, her father was present at that interview with [facility]. He reports she is not alert and oriented. Johnna herself is a poor historian and often unable to provide any coherent information. Dad states they recently moved from [facility] due to persecution and were seeking asylum. Dad, Step Mom, and sister moved to [place]. Last April she seemed like herself when she visited her father. 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. 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 She recently got a license and stressed about driving in [place]. At that point father stated he talked to over the phone. She was very talkative and was not sleeping. She had been talking with her boyfriend who then contacted her family as he was concerned about her behavior. She hadn't been sleeping, the hotel room was a mess, and she was screaming. She was taken to the ER. Stayed there 2d and given atarax, diagnosed with anxiety. Johnna and Johnna's sister flew to [place] to be with their father so he could help. She started to not sleep again. Working on [employer] content. She was talking more about yazdanism. The family are Uatsdin but not overly so. Her behavior became erratic where she was standing on the balcony disrobed, was very entergetic and mumbled to herself. She was also becoming paranoid and thinking the neighbors were just standing in front of the door. She was not eating much and not sleeping. Patient was placed on a 5150 for GD. Assessment: Patient evaluated in the conference room, shows significant improvement, coherent logical, talked about her life, family had visited her yesterday,had a good conversation, prayed for her, they will help out with finances, her father stated he will be financially responsible for the younger children which have taken a lot of stress from her. States she is doing good mentally, she denies any acute psychiatric symptoms/none noted, patient is compliant with treatment, doing well with current tx regimen, will continue with same medication for now. Will continue daily assessments and medication adjustments as needed to stabilize patient further. Mental Status Patient's appearance is appropriate. Behavior : calm, cooperative Speech , clear , normal tone/rate Patient's affect : euthymic Attitude is cooperative. Attention is normal Judgment is fair Insight is fair Results Of any Diagn. Testing On Admission Labs CBC- WNL CMP- WNL TSH- 1.45 UTOX- NEG URINE-- small leuks no nitrites. No C&S indicated HCG- NEG Treatment Weekly CBC Clozaril 50 mg bid Risperidone 0.25 mg bid Hydroxyzine 50 mg q 6 prn anxiety Trazodone 50 mg q hs prn insomnia Monitoring by Staff, Milieu, Group, and Individual counseling as needed -- According to the [place] Suicide Assessment the above named patient is on Q 15 MINUTE CHECKS. DTS/GD--5250-- The patient does not have a good safety plan for discharge at this time. We are still titrating medications to an effective dose while maintaining a therapeutic environment to prevent decompensation and readmission. Total Time Spent: 45 minutes, including but not limited to assessment of the patient, review of RN notes, hospitalists' notes, vital signs, labs, EMR, discussion and consulting with social work, staff, and the assigned nurse, review of medications, and prescribing medications and charting. CODING VISIT-PSYCHIATRY Date of Service: July 13, 2024 Billing Provider: SENAIT ARDON DNP Psych Common Visit Codes: [id number] INP/OBS CARE(Mod) Problem Qualifiers (1) Psychosis: SENAIT ARDON [facility] July 13, 2024 19:46
[2024-07-13 20:00] VITALS: BP 138/93; PULSE 82; RESP 19; TEMP 97.1; O2SAT 99
[2024-07-14 07:00] VITALS: RESP 16; O2SAT 97
[2024-07-14 08:00] VITALS: BP 117/80; PULSE 115; RESP 16; TEMP 97.7; O2SAT 97
--- NOTE | 2024-07-14 08:00 | PROGRESS NOTE ---
Daily Progress Note Providers to CC ~ Antibiotic Timeout Antibiotic Ordered?: No Subjective Chief complaint none Objective Vital Signs Date Time Temp Pulse Resp B/P (MAP) Pulse Ox O2 Delivery O2 Flow Rate FiO2 07/13/24 20:00 97.1 82 19 138/93 (108) 99 Room Air Result Diagram: 07/11/24 1049 Patient is alert and oriented x3 no acute distress walking around comfortably her father's visiting. HEENT normocephalic nontraumatic head CVS first and second heart sounds are regular rate rhythm no murmurs gallops or rubs Respiratory system is clear to auscultate bilaterally no rales rhonchi crackles or wheezing Abdomen is soft scaphoid bowel sounds positive Extremities no clubbing cyanosis or edema Coagulation Studies Laboratory Tests Test 06/30/24 18:48 D-Dimer 0.98 MG/L FEU (0-0.50) H D-Dimer Comment Problem\Assessment\Plan #Acute psychosis Treatment per Psychiatric team. #Chronic psoriasis, not in exacerbation. #Left knee and hip strain -resolved Physical therapy Hospitalist team will continue to follow the patient while hospitalized at [facility] Date of Service: July 14, 2024 Billing Provider: DUC GONZALES MD Common Visit Codes: [id number] INP/OBS CARE(LOW) DUC GONZALES MD July 14, 2024 07:59
[2024-07-14 08:21] VITALS: PULSE 85
[2024-07-14 19:00] VITALS: RESP 20; O2SAT 99
[2024-07-14 20:00] VITALS: BP 116/76; PULSE 105; RESP 20; TEMP 97.5; O2SAT 99
--- NOTE | 2024-07-14 20:25 | PROGRESS NOTE ---
Progress Note Dictate Providers to CC ~ Antibiotic Ordered?: No Objective Vitals Vital Signs Date Time Temp Pulse Resp B/P (MAP) Pulse Ox O2 Delivery O2 Flow Rate FiO2 07/14/24 08:21 85 07/14/24 08:00 97.7 16 117/80 (92) 97 Room Air Lab Results: 07/11/24 1049 Coagulation Studies Laboratory Tests Test 06/30/24 18:48 D-Dimer 0.98 MG/L FEU (0-0.50) H D-Dimer Comment Problem\Assessment\Plan Problems/Diagnosis: (1) Psychosis Psychiatrist's Progress Note Date of Service: July 14, 2024 Notes Notes Johnna Dinh is an female with no known mental health history who presented to [facility] ED with complaints of anxiety and unusual behaviors. She was recently evaluated by a hospital in [place] last week. They did lab work. She talked with a psychiatrist and was d/c with Atarax. She has not seen improvement from medication. Family states she had a bad break up 2 months ago. Sister states that the patient is not making sense and is often talking to herself. CHART REVIEW: Calvin, her father was present at that interview with [facility]. He reports she is not alert and oriented. Johnna herself is a poor historian and often unable to provide any coherent information. Dad states they recently moved from [facility] due to persecution and were seeking asylum. Dad, Step Mom, and sister moved to [place]. Last April she seemed like herself when she visited her father. 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 She recently got a license and stressed about driving in [place]. At that point father stated he talked to over the phone. She was very talkative and was not sleeping. She had been talking with her boyfriend who then contacted her family as he was concerned about her behavior. She hadn't been sleeping, the hotel room was a mess, and she was screaming. She was taken to the ER. Stayed there 2d and given atarax, diagnosed with anxiety. Johnna and Johnna's sister flew to [place] to be with their father so he could help. She started to not sleep again. Working on [employer] content. She was talking more about mosque. The family are Islam but not overly so. Her behavior became erratic where she was standing on the balcony disrobed, was very entergetic and mumbled to herself. She was also becoming paranoid and thinking the neighbors were just standing in front of the door. She was not eating much and not sleeping. Patient was placed on a 5150 for GD. Assessment: Patient evaluated in the conference room, seems confused, scared, actively hallucinating, walked to the door, opened it and was staring at the wall, stating she is seeing her face and it looks very scaring. This morning, Pt had received her scheduled dose of Clozaril 50, Risperidone 0.25 mg and she also was medicated with prn Thorazine 50 mg less than 30 minutes later, which is most likely the reason the patient is exhibiting current symptoms after showing good progress in the past 2 days. Will hold off Thorazine prn for now. Will d/c and increase Clozaril dose to 150 mg tomorrow. Plan was to discharge patient in 2 days but will have to wait and see if she returns to baseline. Will continue daily assessments and medication adjustments as needed to stabilize patient further. Mental Status Patient's appearance is appropriate. Behavior : anxious, scared Psychomotor : normal Speech , clear , normal tone/rate Patient's affect : flat Attitude is cooperative. Attention; Distracted Reasoning is fair Judgment is fair Insight is fair Results Of any Diagn. Testing On Admission Labs CBC- WNL CMP- WNL TSH- 1.45 UTOX- NEG URINE-- small leuks no nitrites. No C&S indicated HCG- NEG Treatment Clozaril 50 mg bid then increase to 150 mg tomorrow D/c risperidone 0.25 mg bid Risperidone 0.25 mg bid Hydroxyzine 50 mg q 6 prn anxiety Trazodone 50 mg q hs prn insomnia Monitoring by Staff, Milieu, Group, and Individual counseling as needed -- According to the [place] Suicide Assessment the above named patient is on Q 15 MINUTE CHECKS. DTS/GD--5250-- The patient does not have a good safety plan for discharge at this time. We are still titrating medications to an effective dose while maintaining a therapeutic environment to prevent decompensation and readmission. Total Time Spent: 60 minutes, including but not limited to assessment of the patient, review of RN notes, hospitalists' notes, vital signs, labs, EMR, discussion and consulting with social work, staff, and the assigned nurse, review of medications, and prescribing medications and charting. Since PT.'S Admission CODING VISIT-PSYCHIATRY Date of Service: July 14, 2024 Billing Provider: SENAIT ARDON DNP Psych Common Visit Codes: [id number] INP/OBS CARE(Mod) Problem Qualifiers (1) Psychosis: SENAIT ARDON DNP July 14, 2024 20:25
[2024-07-15 07:52] VITALS: BP 119/75; PULSE 107; RESP 16; TEMP 97.7; O2SAT 99
[2024-07-15 08:25] VITALS: RESP 16; O2SAT 98
--- NOTE | 2024-07-15 11:53 | PROGRESS NOTE ---
Progress Note Dictate Providers to CC ~ Central Line/PICC still needed: N\\A Antibiotic Ordered?: No MRSA Education MRSA Education Provided to pt: No Objective Vitals Vital Signs Date Time Temp Pulse Resp B/P (MAP) Pulse Ox O2 Delivery O2 Flow Rate FiO2 07/15/24 08:25 16 98 Room Air 07/15/24 07:52 97.7 107 119/75 (90) Lab Results: 07/11/24 1049 Coagulation Studies Laboratory Tests Test 06/30/24 18:48 D-Dimer 0.98 MG/L FEU (0-0.50) H D-Dimer Comment Psychiatrist's Progress Note Date of Service: July 15, 2024 Notes Johnna Dinh is an female with no known mental health history who presented to [facility] ED with complaints of anxiety and unusual behaviors. She was recently evaluated by a hospital in [place] last week. They did lab work. She talked with a psychiatrist and was d/c with Atarax. She has not seen improvement from medication. Family states she had a bad break up 2 months ago. Sister states that the patient is not making sense and is often talking to herself. CHART REVIEW: Calvin, her father was present at that interview with [facility]. He reports she is not alert and oriented. Johnna herself is a poor historian and often unable to provide any coherent information. Dad states they recently moved from [facility] due to persecution and were seeking asylum. Dad, Step Mom, and sister moved to [place]. Last April she seemed like herself when she visited her father. 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 She recently got a license and stressed about driving in [place]. At that point father stated he talked to over the phone. She was very talkative and was not sleeping. She had been talking with her boyfriend who then contacted her family as he was concerned about her behavior. She hadn't been sleeping, the hotel room was a mess, and she was screaming. She was taken to the ER. Stayed there 2d and given atarax, diagnosed with anxiety. Johnna and Johnna's sister flew to [place] to be with their father so he could help. She started to not sleep again. Working on [employer] content. She was talking more about zoroastrian. The family are Baptist but not overly so. Her behavior became erratic where she was standing on the balcony disrobed, was very entergetic and mumbled to herself. She was also becoming paranoid and thinking the neighbors were just standing in front of the door. She was not eating much and not sleeping. Patient was placed on a 5150 for GD. Assessment: Patient evaluated in the conference room. The patient endorses "I will be going to stay with my dad and my little sister is supposed to be coming from [place]." "I am just going to relax; I know my dad will be all over me. You know how dad's are." The patient is coherent. Will continue daily assessments and medication adjustments as needed to stabilize patient further. Mental Status Patient's appearance is appropriate. Behavior : calm, cooperative Psychomotor behaviors are slowed Speech , clear , normal tone/rate Patient's affect : flat Attitude is cooperative. Attention is normal Reasoning is fair Judgment is fair Insight is fair Results Of any Diagn. Testing On Admission Labs CBC- WNL CMP- WNL TSH- 1.45 UTOX- NEG URINE-- small leuks no nitrites. No C&S indicated HCG- NEG Treatment Weekly CBC Clozaril 100mg qhs Hydroxyzine 50 mg q 6 prn anxiety Trazodone 50 mg q hs prn insomnia Monitoring by Staff, Milieu, Group, and Individual counseling as needed -- According to the [place] Suicide Assessment the above named patient is on Q 15 MINUTE CHECKS. DTS/GD--5250-- The patient does not have a good safety plan for discharge at this time. We are still titrating medications to an effective dose while maintaining a therapeutic environment to prevent decompensation and readmission. Total Time Spent: 40 minutes, including but not limited to assessment of the patient, review of RN notes, vital signs, labs, EMR, SW notes, staff, and the assigned nurse, review of medications, and charting. CODING VISIT-PSYCHIATRY Date of Service: July 15, 2024 Billing Provider: URIEL SELBY APRN Psych Common Visit Codes: [id number] INP/OBS CARE(Low) URIEL SELBY APRN July 15, 2024 11:53
[2024-07-15 19:00] VITALS: RESP 18; O2SAT 99
[2024-07-15] MEDS: clozapine 100mg tablet PO ONE (20:00)
[2024-07-15 20:53] VITALS: BP 120/88; PULSE 106; RESP 18; TEMP 96.7; O2SAT 99
[2024-07-16] MEDS ORDERED: HYDR-3686 PO (06:35)
[2024-07-16] MEDS ORDERED: TRAZ-251 PO (06:35)
[2024-07-16 07:00] VITALS: RESP 16; O2SAT 100
[2024-07-16 08:15] VITALS: BP 123/71; PULSE 105; RESP 16; TEMP 97.6; O2SAT 100
--- NOTE | 2024-07-16 10:45 | PROGRESS NOTE ---
Daily Progress Note Providers to CC ~ Antibiotic Timeout Antibiotic Ordered?: No Subjective Chief complaint-patient states him a very emotional person. Review of systems is negative for all 10 systems reviewed Objective Vital Signs Date Time Temp Pulse Resp B/P (MAP) Pulse Ox O2 Delivery O2 Flow Rate FiO2 07/16/24 08:15 97.6 105 16 123/71 (88) 100 Room Air Patient is alert and oriented x3 no acute distress walking around comfortably her father's visiting. HEENT normocephalic nontraumatic head CVS first and second heart sounds are regular rate rhythm no murmurs gallops or rubs Respiratory system is clear to auscultate bilaterally no rales rhonchi crackles or wheezing Abdomen is soft scaphoid bowel sounds positive Extremities no clubbing cyanosis or edema Coagulation Studies Laboratory Tests Test 06/30/24 18:48 D-Dimer 0.98 MG/L FEU (0-0.50) H D-Dimer Comment Problem\Assessment\Plan #Acute psychosis Treatment per Psychiatric team. #Chronic psoriasis, not in exacerbation. #Left knee and hip strain -resolved Physical therapy Hospitalist team will continue to follow the patient while hospitalized at [facility] Date of Service: July 16, 2024 Billing Provider: DUC GONZALES MD Common Visit Codes: [id number] INP/OBS CARE(LOW) DUC GONZALES MD July 16, 2024 10:45
[2024-07-16] MEDS ORDERED: CLOZ100T13 PO (11:14)
--- NOTE | 2024-07-16 11:17 | DISCHARGE SUMMARY ---
Discharge Summary Providers to CC ~ Discharge Summary Admission Diagnosis: UNSPECIFIED PSYCHOSIS Hospital Course DATE OF ADMISSION: DATE OF DISCHARGE: Discharge Diagnosis\\Comment: UNSPECIFIED PSYCHOSIS Operations\\Procedures: NONE Consultants: MEDICAL TEAM Complications: NONE Condition on DC: Stable 2 or more antipsychotic used: No 2/more antipsychotic addressed: No Does Patient smoke: No Smoking education given.: No New Medications: Clozapine (Clozapine) 100 Mg Tablet 1 TAB PO HS for 14 Days, #14 TAB 0 Refills Hydroxyzine Hcl* (Atarax*) 25 Mg Tablet 50 MG PO Q6H PRN for anxiety for 14 Days, #56 TAB Trazodone HCl (Trazodone HCl) 50 Mg Tablet 50 MG PO HS PRN for Insomnia for 14 Days, #14 TAB Discharge Summary: CHART REVIEW Patient presents as paranoid, saw staring at me, stating she does not want to be recorded or have her picture taken, answered all questions with " we shall see" per chart notes- patient arrived at 2055 by with family. She has poor memory about the recent change in mental status, admits being confused about recent events, lost track of time, difficulty sleeping, hyperverbal at home/ ER. States recent work stress with a new job, possibly that is what caused this. No home meds. Patient actively seen and examined on day of discharge 07/16/2024, by myself, GARY Ferreira. The patient is interviewed in observation room. The patient endorses "Good." Denies SI. Denies HI. Denies AVH. Johnna was able to formulate a safety plan which includes going to the emergency room if symptoms return or worsen. Call [phone] or [phone] for immediate assistance if necessary. During his hospital stay, Johnna receive multidisciplinary treatment she adhered to his medication regimen and has been pleasant and cooperative. She denies any suicidal ideation (SI), homicidal ideation (HI), auditory/visual hallucination (HI). Staff has reported no behavioral issues, and the patient has been sleeping well, adequate food intake, with no mood or behavioral changes noted. The decision to discharge Johnna was made in consensus with the treatment team, including the social work coordinator, heating unit installer, and restaurant service manager on duty. The patient was E-scribed a 14-day supply of medication. MENTAL STATUS EXAM APPEARANCE: APPROPRIATELY. DRESSED IN STREET CLOTHING. SPEECH: CIRCUMSTANCE EYE CONTACT: NORMAL AFFECT: CONGRUENT WITH MOOD MOOD: "GOOD" ORIENTATION IMPAIRMENT: NONE MEMORY IMPAIRMENT: NONE ATTENTION: NORMAL HALLUCINATIONS: NONE SUICIDALITY: NONE HOMICIDALITY: NONE DELUSIONS: NONE BEHAVIOR: COOPERATIVE, PLEASANT JUDGMENT: FAIR INSIGHT: FAIR, POOR Continue Current Inpatient Psychotropic Regimen @ home Follow-Up with Psychiatric Provider Safety Plan Discussed DISCHARGE CONDITION: Her readiness for discharge is supported by his stable mental status, adherence to treatment, and proactive approach to managing his mental health. Denies SI. Denies HI. Denies A/V/H. The patient has been informed to continue follow-up care to ensure ongoing support and monitoring. Patient discharged to home. *Problems/Diagnosis: (1) Psychosis Total Time Spent on D/C: > 30 Minutes Counseling Services Smoking & Tobacco Cessation: N/A CODING VISIT-PSYCHIATRY Date of Service: July 16, 2024 Billing Provider: URIEL SELBY APRN Psych Common Visit Codes: [id number]-VUL/OBS DISCH DAY >30min Problem Qualifiers (1) Psychosis: URIEL SELBY APRN July 16, 2024 11:12
[2024-07-16] MEDS ORDERED: clozapine 100mg tablet PO SCH (21:00)
[2024-07-16] MEDS ORDERED: clozapine 25mg tablet PO SCH ×2 (21:00)
== END 2024-07-16 12:15 | disposition home or self-care (01) | DRG 751 ==
LOC: UNDOADMIN 20:29 → ADULT MH 20:29
PROVIDERS: ADMIT Psychiatry & Neurology Psychiatry; ATTEND Psychiatry & Neurology Psychiatry
PROC: GZHZZZZ Group Psychotherapy (ICD-10-PCS; principal; 2024-07-01)
PROC: GZ51ZZZ Individual Psychotherapy, Behavioral (ICD-10-PCS; 2024-07-01)
DX: F23 Brief psychotic disorder (principal); E86.0 Dehydration; G47.9 Sleep disorder, unspecified; F41.9 Anxiety disorder, unspecified; G47.00 Insomnia, unspecified; L40.9 Psoriasis, unspecified; Z79.899 Other long term (current) drug therapy
CPT/HCPCS: 36415; 71045; 80053; 80061; 80305; 81001; 82550; 83036; 83735; 84100; 85008; 85025; 85379; 87077; 87081; 87088; 87186; A6250; J1200; J1630; J2060; J7120; Q0161; Q0163; Q0177

== ENCOUNTER 2024-08-01 12:39 | Emergency (ER) | payer MEDICAID ==
[~2024-08-01] VITALS: Ht 162.6 cm; Wt 58.6 kg
[~2024-08-01 12:39] MED LIST: CLOZ100T13 PO; HYDR-3686 PO; TRAZ-251 PO
[2024-08-01 12:45] VITALS: BP 142/89; PULSE 92; RESP 18; O2SAT 100
--- NOTE | 2024-08-01 14:13 | Physician Documentation ---
HPI ~ General Chief Complaint: Medication Refill Stated Complaint: MED REQUEST Time Seen by MD: 14:07 OK to notify your PCP?: No History of Present Illness HPI Comments 24-year-old female presents to the ED requesting medication refill of her clozapine Without Medications Since: Aug 01, 2024 Medication Reconciliation Allergies: Coded Allergies: No Known Allergies (Unverified , 06/27/24) Scheduled Clozapine (Clozapine), 1 TAB PO HS Scheduled PRN Hydroxyzine Hcl* (Atarax*), 50 MG PO Q6H PRN for anxiety Trazodone HCl (Trazodone HCl), 50 MG PO HS PRN for Insomnia Past Medical History Patient History: Patient reports no known family medical history. Review of Systems All Other Systems at this time: Reviewed and Negative ROS As stated above in the HPI, otherwise all systems are reviewed and negative. Physical Exam Physical Exam Vital Signs: Temperature: 97.7, Heart Rate: 92, Respiratory Rate: 18, BP: 142/89, Pulse Oximetry: 100, Weight: 58.650 Oxygen Flow Rate: 0 Physical Exam General: Alert, no apparent distress. HEENT: PERRL, EOMI, no injection, moist mucous membranes. Neck: Full range of motion. Respiratory: Lungs clear, no respiratory distress. Chest: No accessory muscle use. Cardiovascular: Regular rate and rhythm, no murmurs. Gastrointestinal: Soft, nontender, nondistended. Bowels sounds present. Extremities: Normal range of motion, no deformity. Neurologic: Oriented x4. Psychiatric: Normal mood and affect. Skin: Normal color, warm and dry. No edema, no ecchymosis. Progress Results/Orders Results/Orders Vital Signs 08/01/24 12:45 Temp 97.7 Pulse 92 Resp 18 B/P (MAP) 142/89 Pulse Ox 100 O2 Flow Rate 0 Medical Decision Making Findings refilled patient's medication as requested. Differential Dx:Considerations: Include: Adverse circumstances, Economic, Psychosocial, Medical services unavail., Medication refill, Medication non- compliance, Other Departure Disposition: 01 HOME / SELF CARE / HOMELESS Impression: Primary Impression: General medical exam Additional Impression: Psychosis Condition: Stable Discharge Instructions: Medicine Refill at the Emergency Department Referrals: NO PRIMARY CARE PROVIDER (PCP) Prescriptions Clozapine* (Clozapine*) 100 Mg Tablet 1 TAB PO HS for 30 Days, #30 TAB Prov: PAULINO POLO NP 08/01/24 Education Educated: Patient Educated regarding: diagnosis Signature Scribe Signature: g Attestation: The note accurately reflects work and decisions made by me.Paulino Polo - SOCORRO 08/01/24 14:15 PAULINO POLO NP Aug 01, 2024 14:13
[2024-08-01] MEDS ORDERED: CLOZ100T14 PO (14:15)
[2024-08-01 14:32] VITALS: TEMP 97.7
== END 2024-08-01 14:34 | disposition home or self-care (01) ==
LOC: ER 12:40
DX: F29 Unspecified psychosis not due to a substance or known physiological condition (principal); Z76.0 Encounter for issue of repeat prescription; Z79.899 Other long term (current) drug therapy
CPT/HCPCS: 99281